=== PATIENT | female | born 1955 | race Caucasian/White ===

== ENCOUNTER 2022-01-17 20:49 | Emergency (ER) | payer MEDICARE ==
[~2022-01-17] VITALS: Ht 165.1 cm; Wt 111.1 kg
[~2022-01-17 20:49] MED LIST: ADULT LOW DOSE81 MG PO; ALEVE220 M1 PO; AMLODIPINE BESY10 MG PO; ATORVASTATIN CA40 MG PO; C-10001000 MG PO; CALTRATE 600 +1 EAC1 PO; DULOXETINE HCL30 MG PO; DULOXETINE HCL40 MG PO; ENALAPRIL MALEA10 MG PO; FARXIGA5 MG PO; FEOSOL325 MG PO; FIASP 100100 UNIT/1 SUB-Q; FUROSEMIDE20 MG PO; FUROSEMIDE40 MG PO; GLUCOPHAGE500 MG PO; HUMALOG100 UNIT/2 SUB-Q; HYDROCHLOROTHIA25 MG PO; INDAPAMIDE1.25 MG PO; LANTUS SOL100 UNIT/1 SQ; LOSARTAN POTASS25 MG PO; METFORMIN HCL500 M1 PO; METOPROLOL TART50 MG PO; NOVOLOG100 UNITS/ SUB-Q; POTASSIUM CHLOR8 MEQ PO; VARENICLINE TART1 MG PO; VASOTEC2.5 MG PO; VENTOLIN HFA18 GM; WARFARIN SODIUM10 MG PO; WARFARIN SODIUM5 MG PO; ZOCOR40 MG PO
[2022-01-17] MEDS ORDERED: DILAUDID2 MG PO (23:49)
[2022-01-17] MEDS ORDERED: COLACE100 MG PO (23:49)
== END 2022-01-18 00:44 | disposition home or self-care (01) ==
LOC: ED 20:49
DX: G89.18 Other acute postprocedural pain (principal); M25.562 Pain in left knee; Z96.652 Presence of left artificial knee joint; I10 Essential (primary) hypertension; E11.9 Type 2 diabetes mellitus without complications; E78.00 Pure hypercholesterolemia, unspecified; Z86.711 Personal history of pulmonary embolism; Z86.718 Personal history of other venous thrombosis and embolism; F17.200 Nicotine dependence, unspecified, uncomplicated; Z88.8 Allergy status to other drugs, medicaments and biological substances; Z79.01 Long term (current) use of anticoagulants; Z79.4 Long term (current) use of insulin; Z79.899 Other long term (current) drug therapy
CPT/HCPCS: 36415; 80053; 85025; 85610; 93971; 96374; 96375; 99284-25; J1170; J2270; J3010

== ENCOUNTER 2022-01-22 12:03 | Emergency (ER) | payer MEDICARE ==
[~2022-01-22] VITALS: Ht 165.1 cm; Wt 117.0 kg
[~2022-01-22 12:03] MED LIST changes: +COLACE100 MG PO; +DILAUDID2 MG PO
--- OUTSIDE RECORDS SUMMARY | 2022-01-22 12:06 | XMS ---
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 Efraín has no Care Guidelines for this patient. [facility] NOTE: Visits indicate total known visits. ED/C VISIT TRACKING (12 MO.) [facility]22 [facility] COMPLAINT: - DIZZINESS, SOB, LOW B/P 01/17/2022 20:49 [facility] [place] TYPE: Emergency COMPLAINT: - POST OP SWELLING INPATIENT VISIT TRACKING (12 MO.) No inpatient visits to display in this time frame [id number]
--- NOTE | 2022-01-25 20:41 | EKG ---
[facility] [address] [place] [address] Signed Normal sinus rhythm Normal ECG When compared with ECG of 15-DEC-2015 14:20, No significant change was found Confirmed by Genna Chicas MD () on 01/25/2022 8:41:13 PM Electronically Signed By: GENNA CHICAS MD 01/25/222040 PATIENT NAME: LENORE TOTH BUCK Electrocardiogram DATE OF : 53 PHYSICIAN: GENNA CHICAS MD REPORT #: [id number] REPORT IS CONFIDENTIAL AND NOT TO BE RELEASED WITHOUT AUTHORIZATION
== END 2022-01-22 19:04 | disposition home or self-care (01) ==
LOC: ED 12:03
DX: D64.9 Anemia, unspecified (principal); R53.1 Weakness; I10 Essential (primary) hypertension; E11.9 Type 2 diabetes mellitus without complications; E78.00 Pure hypercholesterolemia, unspecified; F17.200 Nicotine dependence, unspecified, uncomplicated; Z88.8 Allergy status to other drugs, medicaments and biological substances; Z79.899 Other long term (current) drug therapy; Z79.4 Long term (current) use of insulin; Z79.01 Long term (current) use of anticoagulants
CPT/HCPCS: 36415; 71045; 80053; 83735; 84484; 85025; 85610; 86850; 86900; 86901; 86922; 93005; 93010; 99285-25; P9016

== ENCOUNTER 2022-12-05 20:19 | Emergency (ER) | payer MEDICARE ==
[~2022-12-05] VITALS: Ht 165.1 cm; Wt 97.2 kg
--- OUTSIDE RECORDS SUMMARY | ~2022-12-05 | XMS | Continuity of Care Document ---
Demographics + + + | Address | [address] | | | [place] [address] | + + + | Preferred Language | Unknown | + + + | Marital Status | | + + + | Synagogue Affiliation | Unknown | + + + | Race | White | + + + | Ethnic Group | Not or | + + + Author + + + | Author | [facility] | + + + | Organization | [facility] | + + + | Address | [address] | | | [place] [address] | + + + | Phone | | + + + Care Team Providers + + + + | Care Manager Product Marketing Name | Role | Phone | + + + + Unavailable | Unavailable | + + + + Unavailable | Unavailable | + + + + Unavailable | Unavailable | + + + + Unavailable | Unavailable | + + + + Unavailable | Unavailable | + + + + Allergies and Intolerances + + + + + + | date | description | facility | reaction | severity | + + + + + + | (no date) | Agitation | [facility] | (no reaction) | (no severity) | | | [facility] | | | + + + + + + | (no date) | Enalapril | [facility] | (no reaction) | (no severity) | | | | [facility] | | | + + + + + + | (no date) | enalapril | [facility] | (no reaction) | (no severity) | | | | [facility] | | | + + + + + + | (no date) | Anaphylaxis | [facility] | (no reaction) | (no severity) | | | | [facility] | | | + + + + + + | (no date) | Naproxen | [facility] | (no reaction) | (no severity) | | | | [facility] | | | + + + + + + | (no date) | Enalapril | [facility] | (no reaction) | (no severity) | | | | [facility] | | | + + + + + + | (no date) | Naproxen | [facility] | (no reaction) | (no severity) | | | | [facility] | | | + + + + + + | (no date) | naproxen | [facility] | (no reaction) | (no severity) | | | | [facility] | | | + + + + + + | (no date) | meperidine HCl | [facility] | (no reaction) | (no severity) | | | | | | | + + + + + + | (no date) | naproxen | [facility] | (no reaction) | (no severity) | + + + + + + | (no date) | enalapril | [facility] | (no reaction) | (no severity) | + + + + + + Encounters No information. Functional Status No information. Immunizations + + + + | date | description | facility | + + + + | 2012-11-14 00:00 | Pneumococcal | [facility] | | | Polysaccharide PPV23 | | + + + + | 2012-11-14 00:00 | Pneumococcal | [facility] | | | Polysaccharide PPV23 | | + + + + | 2022-01-18 00:00 | No vaccine administered | [facility] | + + + + | 2022-01-22 00:00 | No vaccine administered | [facility] | + + + + | 2022-02-17 00:00 | No vaccine administered | [facility] | + + + + Medications + + + + | date | description | facility | + + + + | 2022-02-17 00:00 | OXYCODONE HCL | [facility] | + + + + | 2022-02-17 00:00 | oxycodone hydrochloride 5 | [facility] | | | MG Oral Tablet | | + + + + | 2022-01-18 00:00 | NAPROXEN SODIUM | [facility] | + + + + | 2022-01-22 00:00 | NAPROXEN SODIUM | [facility] | + + + + | 2022-02-17 00:00 | NAPROXEN SODIUM | [facility] | + + + + | 2022-01-18 00:00 | naproxen sodium 220 MG | [facility] | | | Oral Capsule | | + + + + | 2022-01-22 00:00 | naproxen sodium 220 MG | [facility] | | | Oral Capsule | | + + + + | 2022-02-17 00:00 | naproxen sodium 220 MG | [facility] | | | Oral Capsule | | + + + + | 2022-01-17 00:00 | DOCUSATE SODIUM | [facility] | + + + + | 2022-01-17 00:00 | docusate sodium 100 MG | [facility] | | | Oral Capsule [Colace] | | + + + + | 2022-01-18 00:00 | CALCIUM CARBONATE/VITAMIN | [facility] | | | D3 | | + + + + | 2022-01-22 00:00 | CALCIUM CARBONATE/VITAMIN | [facility] | | | D3 | | + + + + | 2022-02-17 00:00 | CALCIUM CARBONATE/VITAMIN | [facility] | | | D3 | | + + + + | 2022-01-18 00:00 | calcium carbonate 1500 MG | [facility] | | | / cholecalciferol 800 UNT | | | | Oral Tab | | + + + + | 2022-01-22 00:00 | calcium carbonate 1500 MG | [facility] | | | / cholecalciferol 800 UNT | | | | Oral Tab | | + + + + | 2022-02-17 00:00 | calcium carbonate 1500 MG | [facility] | | | / cholecalciferol 800 UNT | | | | Oral Tab | | + + + + | 2022-01-18 00:00 | SIMVASTATIN | [facility] | + + + + | 2022-01-22 00:00 | SIMVASTATIN | [facility] | + + + + | 2022-02-17 00:00 | SIMVASTATIN | [facility] | + + + + | 2022-01-18 00:00 | simvastatin 40 MG Oral | [facility] | | | Tablet [Zocor] | | + + + + | 2022-01-22 00:00 | simvastatin 40 MG Oral | [facility] | | | Tablet [Zocor] | | + + + + | 2022-02-17 00:00 | simvastatin 40 MG Oral | [facility] | | | Tablet [Zocor] | | + + + + | 2022-02-17 00:00 | DOXYCYCLINE HYCLATE | [facility] | + + + + | 2022-02-17 00:00 | doxycycline hyclate 50 MG | [facility] | | | Oral Capsule | | + + + + | 2022-02-17 00:00 | DOXYCYCLINE MONOHYDRATE | [facility] | + + + + | 2022-02-17 00:00 | doxycycline monohydrate 50 | [facility] | | | MG Oral Tablet | | + + + + | 2022-01-18 00:00 | INDAPAMIDE | [facility] | + + + + | 2022-01-22 00:00 | INDAPAMIDE | [facility] | + + + + | 2022-02-17 00:00 | INDAPAMIDE | [facility] | + + + + | 2022-01-18 00:00 | indapamide 1.25 MG Oral | [facility] | | | Tablet | | + + + + | 2022-01-22 00:00 | indapamide 1.25 MG Oral | [facility] | | | Tablet | | + + + + | 2022-02-17 00:00 | indapamide 1.25 MG Oral | [facility] | | | Tablet | | + + + + | 2022-02-17 00:00 | ACETAMINOPHEN | [facility] | + + + + | 2022-02-17 00:00 | acetaminophen 500 MG Oral | [facility] | | | Tablet | | + + + + | 2022-01-18 00:00 | 3 ML insulin aspart, human | [facility] | | | 100 UNT/ML Pen Injector | | | | [Fiasp] | | + + + + | 2022-01-22 00:00 | 3 ML insulin aspart, human | [facility] | | | 100 UNT/ML Pen Injector | | | | [Fiasp] | | + + + + | 2022-02-17 00:00 | 3 ML insulin aspart, human | [facility] | | | 100 UNT/ML Pen Injector | | | | [Fiasp] | | + + + + | 2022-01-18 00:00 | Insulin Aspart | [facility] | | | (Niacinamide) | | + + + + | 2022-01-22 00:00 | Insulin Aspart | [facility] | | | (Niacinamide) | | + + + + | 2022-02-17 00:00 | Insulin Aspart | [facility] | | | (Niacinamide) | | + + + + | 2022-01-18 00:00 | ASCORBIC ACID | [facility] | + + + + | 2022-01-22 00:00 | ASCORBIC ACID | [facility] | + + + + | 2022-02-17 00:00 | ASCORBIC ACID | [facility] | + + + + | 2022-01-18 00:00 | ascorbic acid 1000 MG Oral | [facility] | | | Tablet | | + + + + | 2022-01-22 00:00 | ascorbic acid 1000 MG Oral | [facility] | | | Tablet | | + + + + | 2022-02-17 00:00 | ascorbic acid 1000 MG Oral | [facility] | | | Tablet | | + + + + | 2022-01-18 00:00 | FUROSEMIDE | [facility] | + + + + | 2022-01-22 00:00 | FUROSEMIDE | [facility] | + + + + | 2022-02-17 00:00 | FUROSEMIDE | [facility] | + + + + | 2022-01-18 00:00 | furosemide 20 MG Oral | [facility] | | | Tablet | | + + + + | 2022-01-22 00:00 | furosemide 20 MG Oral | [facility] | | | Tablet | | + + + + | 2022-02-17 00:00 | furosemide 20 MG Oral | [facility] | | | Tablet | | + + + + | 2022-01-18 00:00 | HYDROCHLOROTHIAZIDE | [facility] | + + + + | 2022-01-22 00:00 | HYDROCHLOROTHIAZIDE | [facility] | + + + + | 2022-02-17 00:00 | HYDROCHLOROTHIAZIDE | [facility] | + + + + | 2022-01-18 00:00 | hydrochlorothiazide 25 MG | [facility] | | | Oral Tablet | | + + + + | 2022-01-22 00:00 | hydrochlorothiazide 25 MG | [facility] | | | Oral Tablet | | + + + + | 2022-02-17 00:00 | hydrochlorothiazide 25 MG | [facility] | | | Oral Tablet | | + + + + | 2022-01-18 00:00 | POTASSIUM CHLORIDE | [facility] | + + + + | 2022-01-22 00:00 | POTASSIUM CHLORIDE | [facility] | + + + + | 2022-02-17 00:00 | POTASSIUM CHLORIDE | [facility] | + + + + | 2022-01-18 00:00 | potassium chloride 8 MEQ | [facility] | | | Extended Release Oral | | | | Capsule | | + + + + | 2022-01-22 00:00 | potassium chloride 8 MEQ | [facility] | | | Extended Release Oral | | | | Capsule | | + + + + | 2022-02-17 00:00 | potassium chloride 8 MEQ | [facility] | | | Extended Release Oral | | | | Capsule | | + + + + | 2022-01-18 00:00 | DULOXETINE HCL | [facility] | + + + + | 2022-01-22 00:00 | DULOXETINE HCL | [facility] | + + + + | 2022-02-17 00:00 | DULOXETINE HCL | [facility] | + + + + | 2022-01-18 00:00 | duloxetine 30 MG Delayed | [facility] | | | Release Oral Capsule | | + + + + | 2022-01-22 00:00 | duloxetine 30 MG Delayed | [facility] | | | Release Oral Capsule | | + + + + | 2022-02-17 00:00 | duloxetine 30 MG Delayed | [facility] | | | Release Oral Capsule | | + + + + | 2022-01-18 00:00 | ATORVASTATIN CALCIUM | [facility] | + + + + | 2022-01-22 00:00 | ATORVASTATIN CALCIUM | [facility] | + + + + | 2022-02-17 00:00 | ATORVASTATIN CALCIUM | [facility] | + + + + | 2022-01-18 00:00 | atorvastatin 40 MG Oral | [facility] | | | Tablet | | + + + + | 2022-01-22 00:00 | atorvastatin 40 MG Oral | [facility] | | | Tablet | | + + + + | 2022-02-17 00:00 | atorvastatin 40 MG Oral | [facility] | | | Tablet | | + + + + | 2022-01-18 00:00 | FERROUS SULFATE | [facility] | + + + + | 2022-01-22 00:00 | FERROUS SULFATE | [facility] | + + + + | 2022-02-17 00:00 | FERROUS SULFATE | [facility] | + + + + | 2022-01-18 00:00 | ferrous sulfate 325 MG | [facility] | | | Oral Tablet [Feosol] | | + + + + | 2022-01-22 00:00 | ferrous sulfate 325 MG | [facility] | | | Oral Tablet [Feosol] | | + + + + | 2022-02-17 00:00 | ferrous sulfate 325 MG | [facility] | | | Oral Tablet [Feosol] | | + + + + | 2022-01-18 00:00 | Varenicline Tartrate | [facility] | + + + + | 2022-01-22 00:00 | Varenicline Tartrate | [facility] | + + + + | 2022-02-17 00:00 | Varenicline Tartrate | [facility] | + + + + | 2022-01-18 00:00 | varenicline 1 MG Oral | [facility] | | | Tablet | | + + + + | 2022-01-22 00:00 | varenicline 1 MG Oral | [facility] | | | Tablet | | + + + + | 2022-02-17 00:00 | varenicline 1 MG Oral | [facility] | | | Tablet | | + + + + | 2022-02-17 00:00 | TRAMADOL HCL | [facility] | + + + + | 2022-02-17 00:00 | tramadol hydrochloride 50 | [facility] | | | MG Oral Tablet | | + + + + | 2022-01-18 00:00 | 3 ML insulin glargine 100 | [facility] | | | UNT/ML Pen Injector | | | | [Lantus] | | + + + + | 2022-01-22 00:00 | 3 ML insulin glargine 100 | [facility] | | | UNT/ML Pen Injector | | | | [Lantus] | | + + + + | 2022-02-17 00:00 | 3 ML insulin glargine 100 | [facility] | | | UNT/ML Pen Injector | | | | [Lantus] | | + + + + | 2022-01-18 00:00 | INSULIN | [facility] | | | GLARZORANE,HUM.REC.ANLOG | | + + + + | 2022-01-22 00:00 | INSULIN | [facility] | | | GLARGINE,HUM.REC.ANLOG | | + + + + | 2022-02-17 00:00 | INSULIN | [facility] | | | GLARGINE,HUM.REC.ANLOG | | + + + + | 2022-02-17 00:00 | 0.8 ML enoxaparin sodium | [facility] | | | 150 MG/ML Prefilled Syringe | | | | | | + + + + | 2022-02-17 00:00 | ENOXAPARIN SODIUM | [facility] | + + + + | 2022-01-18 00:00 | WARFARIN SODIUM | [facility] | + + + + | 2022-01-22 00:00 | WARFARIN SODIUM | [facility] | + + + + | 2022-02-17 00:00 | WARFARIN SODIUM | [facility] | + + + + | 2022-01-18 00:00 | warfarin sodium 10 MG Oral | [facility] | | | Tablet | | + + + + | 2022-01-22 00:00 | warfarin sodium 10 MG Oral | [facility] | | | Tablet | | + + + + | 2022-02-17 00:00 | warfarin sodium 10 MG Oral | [facility] | | | Tablet | | + + + + | 2022-01-18 00:00 | WARFARIN SODIUM | [facility] | + + + + | 2022-01-22 00:00 | WARFARIN SODIUM | [facility] | + + + + | 2022-02-17 00:00 | WARFARIN SODIUM | [facility] | + + + + | 2022-01-18 00:00 | warfarin sodium 5 MG Oral | [facility] | | | Tablet | | + + + + | 2022-01-22 00:00 | warfarin sodium 5 MG Oral | [facility] | | | Tablet | | + + + + | 2022-02-17 00:00 | warfarin sodium 5 MG Oral | [facility] | | | Tablet | | + + + + | 2022-01-18 00:00 | ENALAPRIL MALEATE | [facility] | + + + + | 2022-01-22 00:00 | ENALAPRIL MALEATE | [facility] | + + + + | 2022-02-17 00:00 | ENALAPRIL MALEATE | [facility] | + + + + | 2022-01-18 00:00 | enalapril maleate 2.5 MG | [facility] | | | Oral Tablet [Vasotec] | | + + + + | 2022-01-22 00:00 | enalapril maleate 2.5 MG | [facility] | | | Oral Tablet [Vasotec] | | + + + + | 2022-02-17 00:00 | enalapril maleate 2.5 MG | [facility] | | | Oral Tablet [Vasotec] | | + + + + | 2022-01-18 00:00 | ENALAPRIL MALEATE | [facility] | + + + + | 2022-01-22 00:00 | ENALAPRIL MALEATE | [facility] | + + + + | 2022-02-17 00:00 | ENALAPRIL MALEATE | [facility] | + + + + | 2022-01-18 00:00 | enalapril maleate 10 MG | [facility] | | | Oral Tablet | | + + + + | 2022-01-22 00:00 | enalapril maleate 10 MG | [facility] | | | Oral Tablet | | + + + + | 2022-02-17 00:00 | enalapril maleate 10 MG | [facility] | | | Oral Tablet | | + + + + | 2022-01-18 00:00 | ALBUTEROL SULFATE | [facility] | + + + + | 2022-01-18 00:00 | [id number] 200 ACTUAT | [facility] | | | albuterol 0.09 MG/ACTUAT | | | | Metered Dose I | | + + + + | 2022-01-18 00:00 | METOPROLOL TARTRATE | [facility] | + + + + | 2022-01-22 00:00 | METOPROLOL TARTRATE | [facility] | + + + + | 2022-02-17 00:00 | METOPROLOL TARTRATE | [facility] | + + + + | 2022-01-18 00:00 | metoprolol tartrate 50 MG | [facility] | | | Oral Tablet | | + + + + | 2022-01-22 00:00 | metoprolol tartrate 50 MG | [facility] | | | Oral Tablet | | + + + + | 2022-02-17 00:00 | metoprolol tartrate 50 MG | [facility] | | | Oral Tablet | | + + + + | 2022-01-17 00:00 | HYDROMORPHONE HCL | [facility] | + + + + | 2022-01-17 00:00 | hydromorphone | [facility] | | | hydrochloride 2 MG Oral | | | | Tablet [Dilaudid] | | + + + + | 2022-01-18 00:00 | LOSARTAN POTASSIUM | [facility] | + + + + | 2022-01-22 00:00 | LOSARTAN POTASSIUM | [facility] | + + + + | 2022-02-17 00:00 | LOSARTAN POTASSIUM | [facility] | + + + + | 2022-01-18 00:00 | losartan potassium 25 MG | [facility] | | | Oral Tablet | | + + + + | 2022-01-22 00:00 | losartan potassium 25 MG | [facility] | | | Oral Tablet | | + + + + | 2022-02-17 00:00 | losartan potassium 25 MG | [facility] | | | Oral Tablet | | + + + + Problems + + + + | date | description | facility | + + + + | 2015-12-15 00:00 | Confusion | [facility] | + + + + | 2015-12-15 00:00 | Confusion | [facility] | + + + + | 2019-11-28 16:25:07 | Rheumatic mitral stenosis | [facility] | | | [facility] | + + + + | 2019-11-28 16:25:07 | Nonrheumatic aortic | [facility] | | | (valve) stenosis | [facility] | + + + + | 2022-01-17 00:00 | Postoperative pain of left | [facility] | | | knee | | + + + + | 2022-01-17 00:00 | Postoperative pain of left | [facility] | | | knee | | + + + + | 2022-01-22 00:00 | Anemia | [facility] | + + + + | 2022-01-22 00:00 | Anemia | [facility] | + + + + | 2022-01-22 00:00 | Weakness | [facility] | + + + + | 2022-01-22 00:00 | Weakness | [facility] | + + + + | 2022-02-13 00:00 | Postoperative infection of | [facility] | | | knee | | + + + + | 2022-05-26 09:34 | ENCOUNTER FOR THERAPEUTIC | [facility] | | | DRUG LEVEL MONITORING | | + + + + | 2022-05-26 09:34 | CAGE OPERATOR (CURRENT) USE OF | [facility] | | | ANTICOAGULANTS | | + + + + | 2022-05-26 09:34 | PRESENCE OF PROSTHETIC | [facility] | | | HEART VALVE | | + + + + | 2022-06-02 09:25 | ENCOUNTER FOR THERAPEUTIC | [facility] | | | DRUG LEVEL MONITORING | | + + + + | 2022-06-02 09:25 | SKILLED NURSING (CURRENT) USE OF | [facility] | | | ANTICOAGULANTS | | + + + + | 2022-06-02 09:25 | PRESENCE OF PROSTHETIC | [facility] | | | HEART VALVE | | + + + + | 2022-06-09 08:39 | ACUTE EMBOLISM AND THOMBOS | [facility] | | | UNSP DEEP VN UNSP LOWER | | + + + + | 2022-06-09 08:39 | ENCOUNTER FOR THERAPEUTIC | [facility] | | | DRUG LEVEL MONITORING | | + + + + | 2022-06-09 08:39 | SKILLED NURSING (CURRENT) USE OF | [facility] | | | ANTICOAGULANTS | | + + + + | 2022-06-09 08:39 | PRESENCE OF PROSTHETIC | [facility] | | | HEART VALVE | | + + + + | 2022-11-03 10:15 | ACUTE EMBOLISM AND THOMBOS | [facility] | | | UNSP DEEP VN UNSP LOWER | | | | EXTREMITY | | + + + + | 2022-11-03 10:15 | SKILLED NURSING (CURRENT) USE OF | [facility] | | | ANTICOAGULANTS | | + + + + | 2022-11-03 10:15 | PRESENCE OF PROSTHETIC | [facility] | | | HEART VALVE | | + + + + | 2022-11-10 09:23 | ENCOUNTER FOR THERAPEUTIC | [facility] | | | DRUG LEVEL MONITORING | | + + + + | 2022-11-10 09:23 | CAGE OPERATOR (CURRENT) USE OF | [facility] | | | ANTICOAGULANTS | | + + + + Procedures No information. Results/Labs +--------+--------+ +---------+--------+---------+ | test | date | facility | value | unit | notes | +--------+--------+ +---------+--------+---------+ + + | Result panel 1 | + + + + + +--------+ + + | Blood | 2022-01-17 | [facility] | 15.4 | (missing) | (missing) | | leukocytes | 22:14 | [facility] | | | | | automated | | [facility] | | | | | count | | | | | | | (number/volu | | | | | | | me) | | | | | | + + + +--------+ + + + + | Result panel 2 | + + + + + +--------+ + + | Automated | 2022-01-17 | [facility] | 76.8 | (missing) | (missing) | | blood | 22:14 | [facility] | | | | | neutrophil | | Hospital | | | | | count as | | | | | | | percentage | | | | | | | of total | | | | | | | leukocytes | | | | | | + + + +--------+ + + + + | Result panel 3 | + + + + + +--------+ + + | Automated | 2022-01-17 | [facility] | 10.9 | (missing) | (missing) | | blood | 22:14 | [facility] | | | | | lymphocyte | | Hospital | | | | | count as | | | | | | | percentage | | | | | | | ot total | | | | | | | leukocytes | | | | | | + + + +--------+ + + + + | Result panel 4 | + + + + + +-------+ + + | Automated | 2022-01-17 | [facility] | 9.4 | (missing) | (missing) | | blood | 22:14 | [facility] | | | | | monocyte | | Hospital | | | | | count as | | | | | | | percentage | | | | | | | of total | | | | | | | leukocytes | | | | | | + + + +-------+ + + + + | Result panel 5 | + + + + + +--------+ + + | | 2022-01-17 | [facility] | 76.8 | (missing) | (missing) | | (unavailable | 22:14 | [facility] | | | | | ) | | [facility] | | | | + + + +--------+ + + + + | Result panel 6 | + + + + + +--------+ + + | | 2022-01-17 | [facility] | 10.9 | (missing) | (missing) | | (unavailable | 22:14 | [facility] | | | | | ) | | [facility] | | | | + + + +--------+ + + + + | Result panel 7 | + + + + + +-------+ + + | | 2022-01-17 | [facility] | 9.4 | (missing) | (missing) | | (unavailable | 22:14 | [facility] | | | [facility] ) | | [facility] | | | | + + + +-------+ + + + + | Result panel 8 | + + + + + +-------+ + + | | 2022-01-17 | [facility] | 1.6 | (missing) | (missing) | | (unavailable | 22:14 | [facility] | | | | | ) | | [facility] | | | | + + + +-------+ + + + + | Result panel 9 | + + + + + +-------+ + + | | 2022-01-17 | [facility] | 1.3 | (missing) | (missing) | | (unavailable | 22:14 | [facility] | | | | [facility] ) | | [facility] | | | | + + + +-------+ + + + + | Result panel 10 | + + + + + +-------+ + + | Automated | 2022-01-17 | [facility] | 1.6 | (missing) | (missing) | | blood | 22:14 | [facility] | | | | | eosinophil | | Hospital | | | | | count as | | | | | | | percentage | | | | | | | of total | | | | | | | leukocytes | | | | | | + + + +-------+ + + + + | Result panel 11 | + + + + + +-------+ + + | Automated | 2022-01-17 | [facility] | 1.3 | (missing) | (missing) | | blood | 22:14 | [facility] | | | | | basophil | | Hospital | | | | | count as | | | | | | | percentage | | | | | | | of total | | | | | | | leukocytes | | | | | | + + + +-------+ + + + + | Result panel 12 | + + + + + +--------+ + + | Prothrombin | 2022-01-17 | [facility] | 21.2 | (missing) | (missing) | | time (PT) | 22:14 | [facility] | | | | | in platelet | | Hospital | | | | | poor plasma | | | | | | | by | | | | | | | coagulation | | | | | | | assay | | | | | | + + + +--------+ + + + + | Result panel 13 | + + + + + +--------+ + + | INR in | 2022-01-17 | [facility] | 1.91 | (missing) | (missing) | | Platelet | 22:14 | [facility] | | | | | poor plasma | | Hospital | | | | | by | | | | | | | Coagulation | | | | | | | assay | | | | | | + + + +--------+ + + + + | Result panel 14 | + + + + + +------+ + + | Serum or | 2022-01-17 | [facility] | 80 | (missing) | (missing) | | plasma | 22:14 | [facility] | | | | | glucose | | Hospital | | | | | measurement | | | | | | | (mass/volume | | | | | | | ) | | | | | | + + + +------+ + + + + | Result panel 15 | + + + + + +------+ + + | Serum or | 2022-01-17 | [facility] | 44 | (missing) | (missing) | | plasma urea | 22:14 | [facility] | | | | | nitrogen | | Hospital | | | | | measurement | | | | | | | (mass/volume | | | | | | | ) | | | | | | + + + +------+ + + + + | Result panel 16 | + + + + + +--------+ + + | Serum or | 2022-01-17 | [facility] | 2.09 | (missing) | (missing) | | plasma | 22:14 | [facility] | | | | | creatinine | | Hospital | | | | | measurement | | | | | | | (mass/volume | | | | | | | ) | | | | | | + + + +--------+ + + + + | Result panel 17 | + + + + + +--------+ + + | Blood | 2022-01-17 | [facility] | 2.91 | (missing) | (missing) | | erythrocytes | 22:14 | [facility] | | | | | automated | | Hospital | | | | | count | | | | | | | (number/volu | | | | | | | me) | | | | | | + + + +--------+ + + + + | Result panel 18 | + + + + + +------+ + + | Glomerular | 2022-01-17 | [facility] | 25 | (missing) | (missing) | | filtration | 22:14 | [facility] | | | | | rate/1.73 sq | | Hospital | | | | | M.predicted | | | | | | | [Volume | | | | | | | Rate/Area] | | | | | | | inSerum, | | | | | | | Plasma or | | | | | | | Blood by | | | | | | | Creatinine-b | | | | | | | ased formula | | | | | | | (CKD-EPI | | | | | | | 2020) | | | | | | + + + +------+ + + + + | Result panel 19 | + + + + + +---------+ + + | Serum or | 2022-01-17 | [facility] | 21.05 | (missing) | (missing) | | plasma urea | 22:14 | [facility] | | | | | nitrogen/cre | | [facility] | | | | | atinine mass | | | | | | | ratio | | | | | | + + + +---------+ + + + + | Result panel 20 | + + + + + +-------+ + + | Serum or | 2022-01-17 | [facility] | 142 | (missing) | (missing) | | plasma | 22:14 | [facility] | | | | | sodium | | [facility] | | | | | measurement | | | | | | | (moles/volum | | | | | | | e) | | | | | | + + + +-------+ + + + + | Result panel 21 | + + + + + +-------+ + + | Serum or | 2022-01-17 | [facility] | 4.2 | (missing) | (missing) | | plasma | 22:14 | [facility] | | | | | potassium | | [facility] | | | | | measurement | | | | | | | (moles/volum | | | | | | | e) | | | | | | + + + +-------+ + + + + | Result panel 22 | + + + + + +-------+ + + | Serum or | 2022-01-17 | [facility] | 106 | (missing) | (missing) | | plasma | 22:14 | [facility] | | | | | chloride | | [facility] | | | | | measurement | | | | | | | (moles/volum | | | | | | | e) | | | | | | + + + +-------+ + + + + | Result panel 23 | + + + + + +------+ + + | Serum or | 2022-01-17 | [facility] | 25 | (missing) | (missing) | | plasma | 22:14 | [facility] | | | | | carbon | | [facility] | | | | | dioxide, | | | | | | | total | | | | | | | measurement | | | | | | | (moles/volum | | | | | | | e) | | | | | | + + + +------+ + + + + | Result panel 24 | + + + + + +--------+ + + | Serum or | 2022-01-17 | [facility] | 15.2 | (missing) | (missing) | | plasma anion | 22:14 | [facility] | | | | | gap 4 | | [facility] | | | | + + + +--------+ + + + + | Result panel 25 | + + + + + +-------+ + + | Serum or | 2022-01-17 | [facility] | 8.1 | (missing) | (missing) | | plasma | 22:14 | [facility] | | | | | calcium | | [facility] | | | | | measurement | | | | | | | (mass/volume | | | | | | | ) | | | | | | + + + +-------+ + + + + | Result panel 26 | + + + + + +-------+ + + | Serum or | 2022-01-17 | [facility] | 7.1 | (missing) | (missing) | | plasma | 22:14 | [facility] | | | | | protein | | [facility] | | | | | measurement | | | | | | | (mass/volume | | | | | | | ) | | | | | | + + + +-------+ + + + + | Result panel 27 | + + + + + +-------+ + + | Serum or | 2022-01-17 | [facility] | 2.8 | (missing) | (missing) | | plasma | 22:14 | [facility] | | | | | albumin | | [facility] | | | | | measurement | | | | | | | (mass/volume | | | | | | | ) | | | | | | + + + +-------+ + + + + | Result panel 28 | + + + + + +-------+ + + | Blood | 2022-01-17 | [facility] | 8.9 | (missing) | (missing) | | hemoglobin | 22:14 | [facility] | | | | | measurement | | [facility] | | | | | (mass/volume | | | | | | | ) | | | | | | + + + +-------+ + + + + | Result panel 29 | + + + + + +-------+ + + | Serum | 2022-01-17 | [facility] | 4.3 | (missing) | (missing) | | globulin | 22:14 | [facility] | | | | | measurement | | [facility] | | | | | (mass/volume | | | | | | | ) | | | | | | + + + +-------+ + + + + | Result panel 30 | + + + + + +--------+ + + | Serum or | 2022-01-17 | [facility] | 0.65 | (missing) | (missing) | | plasma | 22:14 | [facility] | | | | | albumin/glob | | [facility] | | | | | ulin mass | | | | | | | ratio | | | | | | + + + +--------+ + + + + | Result panel 31 | + + + + + +-------+ + + | Serum or | 2022-01-17 | [facility] | 0.4 | (missing) | (missing) | | plasma total | 22:14 | [facility] | | | | | bilirubin | | [facility] | | | | | measurement | | | | | | | (mass/volume | | | | | | | ) | | | | | | + + + +-------+ + + + + | Result panel 32 | + + + + + +------+ + + | Serum or | 2022-01-17 | [facility] | 36 | (missing) | (missing) | | plasma | 22:14 | [facility] | | | | | aspartate | | [facility] | | | | | aminotransfe | | | | | | | rase | | | | | | | measurement | | | | | | | (enzymatic | | | | | | | activity/vol | | | | | | | ume) | | | | | | + + + +------+ + + + + | Result panel 33 | + + + + + +------+ + + | Serum or | 2022-01-17 | [facility] | 37 | (missing) | (missing) | | plasma | 22:14 | [facility] | | | | | alanine | | Hospital | | | | | aminotransfe | | | | | | | rase | | | | | | | measurement | | | | | | | (enzymatic | | | | | | | activity/vol | | | | | | | ume) | | | | | | + + + +------+ + + + + | Result panel 34 | + + + + + +------+ + + | Serum or | 2022-01-17 | [facility] | 91 | (missing) | (missing) | | plasma | 22:14 | [facility] | | | | | alkaline | | [facility] | | | | | phosphatase | | | | | | | measurement | | | | | | | (enzymatic | | | | | | | activity/vol | | | | | | | ume) | | | | | | + + + +------+ + + + + | Result panel 35 | + + + + + +--------+ + + | | 2022-01-17 | [facility] | 15.4 | (missing) | (missing) | | (unavailable | 22:14 | [facility] | | | | | ) | | [facility] | | | | + + + +--------+ + + + + | Result panel 36 | + + + + + +--------+ + + | | 2022-01-17 | [facility] | 2.91 | (missing) | (missing) | | (unavailable | 22:14 | [facility] | | | | | ) | | [facility] | | | | + + + +--------+ + + + + | Result panel 37 | + + + + + +-------+ + + | | 2022-01-17 | [facility] | 8.9 | (missing) | (missing) | | (unavailable | 22:14 | [facility] | | | | | ) | | [facility] | | | | + + + +-------+ + + + + | Result panel 38 | + + + + + +--------+ + + | | 2022-01-17 | [facility] | 27.2 | (missing) | (missing) | | (unavailable | 22:14 | [facility] | | | | | ) | | [facility] | | | | + + + +--------+ + + + + | Result panel 39 | + + + + + +--------+ + + | Automated | 2022-01-17 | [facility] | 27.2 | (missing) | (missing) | | blood | 22:14 | [facility] | | | | | hematocrit | | [facility] | | | | + + + +--------+ + + + + | Result panel 40 | + + + + + +--------+ + + | | 2022-01-17 | [facility] | 93.4 | (missing) | (missing) | | (unavailable | 22:14 | [facility] | | | | | ) | | [facility] | | | | + + + +--------+ + + + + | Result panel 41 | + + + + + +--------+ + + | | 2022-01-17 | [facility] | 30.4 | (missing) | (missing) | | (unavailable | 22:14 | [facility] | | | | | ) | | [facility] | | | | + + + +--------+ + + + + | Result panel 42 | + + + + + +--------+ + + | | 2022-01-17 | [facility] | 32.6 | (missing) | (missing) | | (unavailable | 22:14 | [facility] | | | | | ) | | [facility] | | | | + + + +--------+ + + + + | Result panel 43 | + + + + + +--------+ + + | | 2022-01-17 | [facility] | 15.2 | (missing) | (missing) | | (unavailable | 22:14 | [facility] | | | | | ) | | [facility] | | | | + + + +--------+ + + + + | Result panel 44 | + + + + + +-------+ + + | | 2022-01-17 | [facility] | 365 | (missing) | (missing) | | (unavailable | 22:14 | [facility] | | | | | ) | | [facility] | | | | + + + +-------+ + + + + | Result panel 45 | + + + + + +--------+ + + | | 2022-01-17 | [facility] | 76.8 | (missing) | (missing) | | (unavailable | 22:14 | [facility] | | | | | ) | | [facility] | | | | + + + +--------+ + + + + | Result panel 46 | + + + + + +--------+ + + | | 2022-01-17 | [facility] | 10.9 | (missing) | (missing) | | (unavailable | 22:14 | [facility] | | | | ) | | [facility] | | | | + + + +--------+ + + + + | Result panel 47 | + + + + + +-------+ + + | | 2022-01-17 | [facility] | 9.4 | (missing) | (missing) | | (unavailable | 22:14 | [facility] | | | | ) | | [facility] | | | | + + + +-------+ + + + + | Result panel 48 | + + + + + +-------+ + + | | 2022-01-17 | [facility] | 1.6 | (missing) | (missing) | | (unavailable | 22:14 | [facility] | | | | | ) | | [facility] | | | | + + + +-------+ + + + + | Result panel 49 | + + + + + +-------+ + + | | 2022-01-17 | [facility] | 1.3 | (missing) | (missing) | | (unavailable | 22:14 | [facility] | | | | | ) | | [facility] | | | | + + + +-------+ + + + + | Result panel 50 | + + + + + +--------+ + + | Automated | 2022-01-17 | [facility] | 93.4 | (missing) | (missing) | | erythrocyte | 22:14 | [facility] | | | | | mean | | Hospital | | | | | corpuscular | | | | | | | volume | | | | | | + + + +--------+ + + + + | Result panel 51 | + + + + + +--------+ + + | | 2022-01-17 | [facility] | 21.2 | (missing) | (missing) | | (unavailable | 22:14 | [facility] | | | | | ) | | [facility] | | | | + + + +--------+ + + + + | Result panel 52 | + + + + + +--------+ + + | | 2022-01-17 | [facility] | 1.91 | (missing) | (missing) | | (unavailable | 22:14 | [facility] | | | | | ) | | [facility] | | | | + + + +--------+ + + + + | Result panel 53 | + + + + + +------+---------+ + | | 2022-01-17 | [facility] | 80 | mg/dL | (missing) | | (unavailable | 22:14 | [facility] | | | | | ) | | [facility] | | | | + + + +------+---------+ + + + | Result panel 54 | + + + + + +------+---------+ + | | 2022-01-17 | [facility] | 44 | mg/dL | (missing) | | (unavailable | 22:14 | [facility] | | [facility] | ) | | [facility] | | | | + + + +------+---------+ + + + | Result panel 55 | + + + + + +--------+---------+ + | | 2022-01-17 | [facility] | 2.09 | mg/dL | (missing) | | (unavailable | 22:14 | [facility] | | [facility] | ) | | [facility] | | | | + + + +--------+---------+ + + + | Result panel 56 | + + + + + +------+ + + | | 2022-01-17 | [facility] | 25 | (missing) | (missing) | | (unavailable | 22:14 | [facility] | | | | ) | | [facility] | | | | + + + +------+ + + + + | Result panel 57 | + + + + + +---------+ + + | | 2022-01-17 | [facility] | 21.05 | (missing) | (missing) | | (unavailable | 22:14 | [facility] | | | | | ) | | [facility] | | | | + + + +---------+ + + + + | Result panel 58 | + + + + + +-------+ + + | | 2022-01-17 | [facility] | 142 | (missing) | (missing) | | (unavailable | 22:14 | [facility] | | [facility] | ) | | [facility] | | | | + + + +-------+ + + + + | Result panel 59 | + + + + + +-------+ + + | | 2022-01-17 | [facility] | 4.2 | (missing) | (missing) | | (unavailable | 22:14 | [facility] | | | | ) | | [facility] | | | | + + + +-------+ + + + + | Result panel 60 | + + + + + +-------+ + + | | 2022-01-17 | [facility] | 106 | (missing) | (missing) | | (unavailable | 22:14 | [facility] | | | [facility] ) | | [facility] | | | | + + + +-------+ + + + + | Result panel 61 | + + + + + +--------+ + + | Automated | 2022-01-17 | [facility] | 30.4 | (missing) | (missing) | | erythrocyte | 22:14 | [facility] | | | | | mean | | Hospital | | | | | corpuscular | | | | | | | hemoglobin | | | | | | | (mass per | | | | | | | erythrocyte) | | | | | | | | | | | | | + + + +--------+ + + + + | Result panel 62 | + + + + + +------+ + + | | 2022-01-17 | [facility] | 25 | (missing) | (missing) | | (unavailable | 22:14 | [facility] | | | | ) | | [facility] | | | | + + + +------+ + + + + | Result panel 63 | + + + + + +--------+ + + | | 2022-01-17 | [facility] | 15.2 | (missing) | (missing) | | (unavailable | 22:14 | [facility] | | [facility] | ) | | [facility] | | | | + + + +--------+ + + + + | Result panel 64 | + + + + + +-------+---------+ + | | 2022-01-17 | [facility] | 8.1 | mg/dL | (missing) | | (unavailable | 22:14 | [facility] | | | | | ) | | [facility] | | | | + + + +-------+---------+ + + + | Result panel 65 | + + + + + +-------+ + + | | 2022-01-17 | [facility] | 7.1 | (missing) | (missing) | | (unavailable | 22:14 | [facility] | | | | | ) | | [facility] | | | | + + + +-------+ + + + + | Result panel 66 | + + + + + +-------+ + + | | 2022-01-17 | [facility] | 2.8 | (missing) | (missing) | | (unavailable | 22:14 | [facility] | | | | | ) | | [facility] | | | | + + + +-------+ + + + + | Result panel 67 | + + + + + +-------+ + + | | 2022-01-17 | [facility] | 4.3 | (missing) | (missing) | | (unavailable | 22:14 | [facility] | | | | ) | | [facility] | | | | + + + +-------+ + + + + | Result panel 68 | + + + + + +--------+ + + | | 2022-01-17 | [facility] | 0.65 | (missing) | (missing) | | (unavailable | 22:14 | [facility] | | | | ) | | [facility] | | | | + + + +--------+ + + + + | Result panel 69 | + + + + + +-------+ + + | | 2022-01-17 | [facility] | 0.4 | (missing) | (missing) | | (unavailable | 22:14 | [facility] | | [facility] ) | | [facility] | | | | + + + +-------+ + + + + | Result panel 70 | + + + + + +------+ + + | | 2022-01-17 | [facility] | 36 | (missing) | (missing) | | (unavailable | 22:14 | [facility] | | | | ) | | [facility] | | | | + + + +------+ + + + + | Result panel 71 | + + + + + +------+ + + | | 2022-01-17 | [facility] | 37 | (missing) | (missing) | | (unavailable | 22:14 | [facility] | | | | | ) | | [facility] | | | | + + + +------+ + + + + | Result panel 72 | + + + + + +--------+ + + | Automated | 2022-01-17 | [facility] | 32.6 | (missing) | (missing) | | erythrocyte | 22:14 | [facility] | | | | | mean | | Hospital | | | | | corpuscular | | | | | | | hemoglobin | | | | | | | concentratio | | | | | | | n | | | | | | | measurement | | | | | | | (mass/volume | | | | | | | ) | | | | | | + + + +--------+ + + + + | Result panel 73 | + + + + + +------+ + + | | 2022-01-17 | [facility] | 91 | (missing) | (missing) | | (unavailable | 22:14 | [facility] | | | | | ) | | [facility] | | | | + + + +------+ + + + + | Result panel 74 | + + + + + +--------+ + + | Automated | 2022-01-17 | [facility] | 76.8 | (missing) | (missing) | | blood | 22:14 | [facility] | | | | | neutrophil | | [facility] | | | | | count as | | | | | | | percentage | | | | | | | of total | | | | | | | leukocytes | | | | | | + + + +--------+ + + + + | Result panel 75 | + + + + + +--------+ + + | Automated | 2022-01-17 | [facility] | 10.9 | (missing) | (missing) | | blood | 22:14 | [facility] | | | | | lymphocyte | | Hospital | | | | | count as | | | | | | | percentage | | | | | | | ot total | | | | | | | leukocytes | | | | | | + + + +--------+ + + + + | Result panel 76 | + + + + + +-------+ + + | Automated | 2022-01-17 | [facility] | 9.4 | (missing) | (missing) | | blood | 22:14 | [facility] | | | | | monocyte | | Hospital | | | | | count as | | | | | | | percentage | | | | | | | of total | | | | | | | leukocytes | | | | | | + + + +-------+ + + + + | Result panel 77 | + + + + + +-------+ + + | Automated | 2022-01-17 | [facility] | 1.6 | (missing) | (missing) | | blood | 22:14 | [facility] | | | | | eosinophil | | Hospital | | | | | count as | | | | | | | percentage | | | | | | | of total | | | | | | | leukocytes | | | | | | + + + +-------+ + + + + | Result panel 78 | + + + + + +-------+ + + | Automated | 2022-01-17 | [facility] | 1.3 | (missing) | (missing) | | blood | 22:14 | [facility] | | | | | basophil | | Hospital | | | | | count as | | | | | | | percentage | | | | | | | of total | | | | | | | leukocytes | | | | | | + + + +-------+ + + + + | Result panel 79 | + + + + + +--------+ + + | Automated | 2022-01-17 | [facility] | 15.2 | (missing) | (missing) | | erythrocyte | 22:14 | [facility] | | | | | distribution | | Hospital | | | | | width | | | | | | + + + +--------+ + + + + | Result panel 80 | + + + + + +-------+ + + | Automated | 2022-01-17 | [facility] | 365 | (missing) | (missing) | | blood | 22:14 | [facility] | | | | | platelet | | Hospital | | | | | count | | | | | | | (count/volum | | | | | | | e) | | | | | | + + + +-------+ + + + + | Result panel 81 | + + + + + +-------+ + + | | 2022-01-22 | [facility] | 4.8 | (missing) | (missing) | | (unavailable | 13:14 | [facility] | | | | | ) | | [facility] | | | | + + + +-------+ + + + + | Result panel 82 | + + + + + +-------+ + + | | 2022-01-22 | [facility] | 105 | (missing) | (missing) | | (unavailable | 13:14 | [facility] | | | | | ) | | [facility] | | | | + + + +-------+ + + + + | Result panel 83 | + + + + + +------+ + + | | 2022-01-22 | [facility] | 25 | (missing) | (missing) | | (unavailable | 13:14 | [facility] | | | | | ) | | [facility] | | | | + + + +------+ + + + + | Result panel 84 | + + + + + +--------+ + + | | 2022-01-22 | [facility] | 15.8 | (missing) | (missing) | | (unavailable | 13:14 | [facility] | | | | | ) | | [facility] | | | | + + + +--------+ + + + + | Result panel 85 | + + + + + +-------+---------+ + | | 2022-01-22 | [facility] | 9.2 | mg/dL | (missing) | | (unavailable | 13:14 | [facility] | | | | | ) | | [facility] | | | | + + + +-------+---------+ + + + | Result panel 86 | + + + + + +-------+---------+ + | | 2022-01-22 | [facility] | 2.2 | mg/dL | (missing) | | (unavailable | 13:14 | [facility] | | | | | ) | | [facility] | | | | + + + +-------+---------+ + + + | Result panel 87 | + + + + + +-------+ + + | | 2022-01-22 | [facility] | 7.4 | (missing) | (missing) | | (unavailable | 13:14 | [facility] | | | | | ) | | [facility] | | | | + + + +-------+ + + + + | Result panel 88 | + + + + + +-------+ + + | | 2022-01-22 | [facility] | 2.8 | (missing) | (missing) | | (unavailable | 13:14 | [facility] | | | | | ) | | [facility] | | | | + + + +-------+ + + + + | Result panel 89 | + + + + + +-------+ + + | | 2022-01-22 | [facility] | 4.6 | (missing) | (missing) | | (unavailable | 13:14 | [facility] | | | | | ) | | [facility] | | | | + + + +-------+ + + + + | Result panel 90 | + + + + + +--------+ + + | | 2022-01-22 | [facility] | 0.61 | (missing) | (missing) | | (unavailable | 13:14 | [facility] | | | | | ) | | [facility] | | | | + + + +--------+ + + + + | Result panel 91 | + + + + + +-------+ + + | | 2022-01-22 | [facility] | 0.5 | (missing) | (missing) | | (unavailable | 13:14 | [facility] | | | | | ) | | [facility] | | | | + + + +-------+ + + + + | Result panel 92 | + + + + + +------+ + + | | 2022-01-22 | [facility] | 72 | (missing) | (missing) | | (unavailable | 13:14 | [facility] | | | | | ) | | [facility] | | | | + + + +------+ + + + + | Result panel 93 | + + + + + +-------+ + + | | 2022-01-22 | [facility] | 101 | (missing) | (missing) | | (unavailable | 13:14 | [facility] | | | | | ) | | [facility] | | | | + + + +-------+ + + + + | Result panel 94 | + + + + + +-------+ + + | | 2022-01-22 | [facility] | 131 | (missing) | (missing) | | (unavailable | 13:14 | [facility] | | | | | ) | | [facility] | | | | + + + +-------+ + + + + | Result panel 95 | + + + + + +--------+ + + | | 2022-01-22 | [facility] | 11.3 | (missing) | (missing) | | (unavailable | 13:14 | [facility] | | | | | ) | | [facility] | | | | + + + +--------+ + + + + | Result panel 96 | + + + + + +------+ + + | Manual | 2022-01-22 | [facility] | 82 | (missing) | (missing) | | blood | 13:14 | [facility] | | | | | segmented | | [facility] | | | | | neutrophils/ | | | | | | | 100 | | | | | | | leukocytes | | | | | | + + + +------+ + + + + | Result panel 97 | + + + + + +------+ + + | Manual | 2022-01-22 | [facility] | 15 | (missing) | (missing) | | blood | 13:14 | [facility] | | | | | lymphocytes/ | | [facility] | | | | | 100 | | | | | | | leukocytes | | | | | | + + + +------+ + + + + | Result panel 98 | + + + + + +-----+ + + | Manual | 2022-01-22 | [facility] | 2 | (missing) | (missing) | | blood | 13:14 | [facility] | | | | | monocytes/10 | | [facility] | | | | | 0 leukocytes | | | | | | | | | | | | | + + + +-----+ + + + + | Result panel 99 | + + + + + +-----+ + + | Manual | 2022-01-22 | [facility] | 1 | (missing) | (missing) | | blood band | 13:14 | [facility] | | | | | neutrophils | | Hospital | | | | | form/100 | | | | | | | leukocytes | | | | | | + + + +-----+ + + + + | Result panel 100 | + + + + + + + + + | Blood | 2022-01-22 | [facility] | PRESENT | (missing) | (missing) | | anisocytosis | 13:14 | [facility] | | | | | detection | | Hospital | | | | | by light | | | | | | | microscopy | | | | | | + + + + + + + + + | Result panel 101 | + + + + + + + + + | Blood | 2022-01-22 | [facility] | PRESENT | (missing) | (missing) | | polychromasi | 13:14 | [facility] | | | | | a detection | | Hospital | | | | | by light | | | | | | | microscopy | | | | | | + + + + + + + + + | Result panel 102 | + + + + + + + + + | Teardrop | 2022-01-22 | [facility] | PRESENT | (missing) | (missing) | | cell | 13:14 | [facility] | | | | | detection | | Hospital | | | | + + + + + + + + + | Result panel 103 | + + + + + +-------+ + + | Serum or | 2022-01-22 | [facility] | 2.2 | (missing) | (missing) | | plasma | 13:14 | [facility] | | | | | magnesium | | Hospital | | | | | measurement | | | | | | | (mass/volume | | | | | | | ) | | | | | | + + + +-------+ + + + + | Result panel 104 | + + + + + +--------+ + + | Serum or | 2022-01-22 | [facility] | 11.3 | (missing) | (missing) | | plasma | 13:14 | [facility] | | | | | cardiac | | Hospital | | | | | troponin I | | | | | | | measurement | | | | | | | by high | | | | | | | senstivity | | | | | | | method | | | | | | | (mass/volume | | | | | | | ) | | | | | | + + + +--------+ + + + + | Result panel 105 | + + + + + +------+ + + | | 2022-01-22 | [facility] | 82 | (missing) | (missing) | | (unavailable | 13:14 | [facility] | | | | | ) | | [facility] | | | | + + + +------+ + + + + | Result panel 106 | + + + + + +------+ + + | | 2022-01-22 | [facility] | 15 | (missing) | (missing) | | (unavailable | 13:14 | [facility] | | | | | ) | | [facility] | | | | + + + +------+ + + + + | Result panel 107 | + + + + + +-----+ + + | | 2022-01-22 | [facility] | 2 | (missing) | (missing) | | (unavailable | 13:14 | [facility] | | | | | ) | | [facility] | | | | + + + +-----+ + + + + | Result panel 108 | + + + + + +-----+ + + | | 2022-01-22 | [facility] | 1 | (missing) | (missing) | | (unavailable | 13:14 | [facility] | | | | | ) | | [facility] | | | | + + + +-----+ + + + + | Result panel 109 | + + + + + + + + + | | 2022-01-22 | [facility] | PRESENT | (missing) | (missing) | | (unavailable | 13:14 | [facility] | | | | | ) | | [facility] | | | | + + + + + + + + + | Result panel 110 | + + + + + + + + + | | 2022-01-22 | [facility] | PRESENT | (missing) | (missing) | | (unavailable | 13:14 | [facility] | | | | | ) | | [facility] | | | | + + + + + + + + + | Result panel 111 | + + + + + + + + + | | 2022-01-22 | [facility] | PRESENT | (missing) | (missing) | | (unavailable | 13:14 | [facility] | | | | | ) | | [facility] | | | | + + + + + + + + + | Result panel 112 | + + + + + +-------+---------+ + | | 2022-01-22 | [facility] | 2.2 | mg/dL | (missing) | | (unavailable | 13:14 | [facility] | | | | | ) | | [facility] | | | | + + + +-------+---------+ + + + | Result panel 113 | + + + + + +--------+ + + | | 2022-01-22 | [facility] | 11.3 | (missing) | (missing) | | (unavailable | 13:14 | [facility] | | | | + + + +--------+ + + + + | Result panel 114 | + + + + + +--------+ + + | | 2022-01-22 | [facility] | 17.5 | (missing) | (missing) | | (unavailable | 13:14 | [facility] | | | | + + + +--------+ + + + + | Result panel 115 | + + + + + +--------+ + + | | 2022-01-22 | [facility] | 2.64 | (missing) | (missing) | | (unavailable | 13:14 | [facility] | | | | + + + +--------+ + + + + | Result panel 116 | + + + + + +-------+ + + | | 2022-01-22 | [facility] | 7.9 | (missing) | (missing) | | (unavailable | 13:14 | [facility] | | | | + + + +-------+ + + + + | Result panel 117 | + + + + + +--------+ + + | | 2022-01-22 | [facility] | 25.2 | (missing) | (missing) | | (unavailable | 13:14 | [facility] | | | | + + + +--------+ + + + + | Result panel 118 | + + + + + +--------+ + + | | 2022-01-22 | [facility] | 95.4 | (missing) | (missing) | | (unavailable | 13:14 | [facility] | | | | + + + +--------+ + + + + | Result panel 119 | + + + + + +--------+ + + | | 2022-01-22 | [facility] | 30.1 | (missing) | (missing) | | (unavailable | 13:14 | [facility] | | | | + + + +--------+ + + + + | Result panel 120 | + + + + + +--------+ + + | | 2022-01-22 | [facility] | 31.6 | (missing) | (missing) | | (unavailable | 13:14 | [facility] | | | | + + + +--------+ + + + + | Result panel 121 | + + + + + +--------+ + + | | 2022-01-22 | [facility] | 15.4 | (missing) | (missing) | | (unavailable | 13:14 | [facility] | | | | + + + +--------+ + + + + | Result panel 122 | + + + + + +-------+ + + | | 2022-01-22 | [facility] | 568 | (missing) | (missing) | | (unavailable | 13:14 | [facility] | | | | + + + +-------+ + + + + | Result panel 123 | + + + + + +------+ + + | | 2022-01-22 | [facility] | 82 | (missing) | (missing) | | (unavailable | 13:14 | [facility] | | | | + + + +------+ + + + + | Result panel 124 | + + + + + +------+ + + | | 2022-01-22 | [facility] | 15 | (missing) | (missing) | | (unavailable | 13:14 | [facility] | | | | + + + +------+ + + + + | Result panel 125 | + + + + + +-----+ + + | | 2022-01-22 | [facility] | 2 | (missing) | (missing) | | (unavailable | 13:14 | [facility] | | | | + + + +-----+ + + + + | Result panel 126 | + + + + + +-----+ + + | | 2022-01-22 | [facility] | 1 | (missing) | (missing) | | (unavailable | 13:14 | [facility] | | | | + + + +-----+ + + + + | Result panel 127 | + + + + + + + + + | | 2022-01-22 | [facility] | PRESENT | (missing) | (missing) | | (unavailable | 13:14 | [facility] | | | | + + + + + + + + + | Result panel 128 | + + + + + + + + + | | 2022-01-22 | [facility] | PRESENT | (missing) | (missing) | | (unavailable | 13:14 | [facility] | | | | + + + + + + + + + | Result panel 129 | + + + + + + + + + | | 2022-01-22 | [facility] | PRESENT | (missing) | (missing) | | (unavailable | 13:14 | [facility] | | | | + + + + + + + + + | Result panel 130 | + + + + + +-------+---------+ + | | 2022-01-22 | [facility] | 253 | mg/dL | (missing) | | (unavailable | 13:14 | [facility] | [facility] | | [facility] | | | | + + + +-------+---------+ + + + | Result panel 131 | + + + + + +------+---------+ + | | 2022-01-22 | [facility] | 56 | mg/dL | (missing) | | (unavailable | 13:14 | [facility] | | | | + + + +------+---------+ + + + | Result panel 132 | + + + + + +--------+---------+ + | | 2022-01-22 | [facility] | 2.18 | mg/dL | (missing) | | (unavailable | 13:14 | [facility] | | | | + + + +--------+---------+ + + + | Result panel 133 | + + + + + +------+ + + | | 2022-01-22 | [facility] | 24 | (missing) | (missing) | | (unavailable | 13:14 | [facility] | | | | + + + +------+ + + + + | Result panel 134 | + + + + + +---------+ + + | | 2022-01-22 | [facility] | 25.68 | (missing) | (missing) | | (unavailable | 13:14 | [facility] | | | | + + + +---------+ + + + + | Result panel 135 | + + + + + +-------+ + + | | 2022-01-22 | [facility] | 141 | (missing) | (missing) | | (unavailable | 13:14 | [facility] | | | | + + + +-------+ + + + + | Result panel 136 | + + + + + +--------+ + + | | 2022-01-22 | [facility] | 22.2 | (missing) | (missing) | | (unavailable | 13:45 | [facility] | | | | + + + +--------+ + + + + | Result panel 137 | + + + + + +--------+ + + | | 2022-01-22 | [facility] | 2.01 | (missing) | (missing) | | (unavailable | 13:45 | [facility] | | | | + + + +--------+ + + + + | Result panel 138 | + + + + + +-----+ + + | | 2022-01-22 | [facility] | A | (missing) | (missing) | | (unavailable | 14:44 | [facility] | | | | + + + +-----+ + + + + | Result panel 139 | + + + + + + + + + | | 2022-01-22 | [facility] | NEGATIVE | (missing) | (missing) | | (unavailable | 14:44 | [facility] | [facility] | | | | + + + + + + + + + | Result panel 140 | + + + + + + + + + | | 2022-01-22 | [facility] | NEGATIVE | (missing) | (missing) | | (unavailable | 14:44 | [facility] ) | | [facility] | | | | + + + + + + + + + | Result panel 141 | + + + + + + + + + | | 2022-01-22 | [facility] | COMPATIBLE | (missing) | (missing) | | (unavailable | 14:44 | [facility] | [facility] | | | | + + + + + + + + + | Result panel 142 | + + + + + + + + + | | 2022-01-22 | [facility] | BLOOD IN | (missing) | (missing) | | (unavailable | 14:44 | [facility] | [facility] | | | | ) | | [facility] | | | | + + + + + + + + + | Result panel 143 | + + + + + +-----+ + + | Blood ABO | 2022-01-22 | [facility] | A | (missing) | (missing) | | group typing | 14:44 | [facility] | | | | | | | [facility] | | | | + + + +-----+ + + + + | Result panel 144 | + + + + + + + + + | Rh blood | 2022-01-22 | [facility] | NEGATIVE | (missing) | (missing) | | group typing | 14:44 | [facility] | | | | | | | [facility] | | | | + + + + + + + + + | Result panel 145 | + + + + + + + + + | Serum or | 2022-01-22 | [facility] | NEGATIVE | (missing) | (missing) | | plasma | 14:44 | [facility] | | | | | indirect | | Hospital | | | | | antiglobulin | | | | | | | test using | | | | | | | poly | | | | | | | specific | | | | | | | reagent | | | | | | + + + + + + + + + | Result panel 146 | + + + + + + + + + | Immediate | 2022-01-22 | [facility] | COMPATIBLE | (missing) | (missing) | | spin | 14:44 | [facility] | | | | | crossmatch | | [facility] | | | | + + + + + + + + + | Result panel 147 | + + + + + + + + + | Num units | 2022-01-22 | [facility] | | (missing) | (missing) | | trans packed | 14:44 | [facility] | [phone] | | | | RBC | | Hospital | 00E | | | + + + + + + + + + | Result panel 148 | + + + + + + + + + | Transf Band | 2022-01-22 | [facility] | BLOOD IN | (missing) | (missing) | | Num Patient | 14:44 | [facility] | LAB | | | | | | [facility] | | | | + + + + + + + + + | Result panel 149 | + + + + + +-----+ + + | | 2022-01-22 | [facility] | A | (missing) | (missing) | | (unavailable | 14:44 | [facility] | | | | | ) | | [facility] | | | | + + + +-----+ + + + + | Result panel 150 | + + + + + + + + + | | 2022-01-22 | [facility] | NEGATIVE | (missing) | (missing) | | (unavailable | 14:44 | [facility] | | | | | ) | | [facility] | | | | + + + + + + + + + | Result panel 151 | + + + + + + + + + | | 2022-01-22 | [facility] | NEGATIVE | (missing) | (missing) | | (unavailable | 14:44 | [facility] | | | | | ) | | [facility] | | | | + + + + + + + + + | Result panel 152 | + + + + + + + + + | | 2022-01-22 | [facility] | COMPATIBLE | (missing) | (missing) | | (unavailable | 14:44 | [facility] | | | | | ) | | [facility] | | | | + + + + + + + + + | Result panel 153 | + + + + + + + + + | | 2022-01-22 | [facility] | | (missing) | (missing) | | (unavailable | 14:44 | [facility] | [phone] | | | | ) | | [facility] | 00E | | | + + + + + + + + + | Result panel 154 | + + + + + + + + + | | 2022-01-22 | [facility] | BLOOD IN | (missing) | (missing) | | (unavailable | 14:44 | [facility] | LAB | | | | ) | | [facility] | | | | + + + + + + + + + | Result panel 155 | + + + + + + + + + | Respiratory | 2022-02-13 | [facility] | NEGATIVE | (missing) | (missing) | | specimen | 06:07 | [facility] | | | | | 2019 novel | | Hospital | | | | | coronavirus | | | | | | | RNA | | | | | | | detection | | | | | | + + + + + + + + + | Result panel 156 | + + + + + + + + + | | 2022-02-13 | [facility] | NEGATIVE | (missing) | (missing) | | (unavailable | 06:07 | [facility] | | | | | ) | | [facility] | | | | + + + + + + + + + | Result panel 157 | + + + + + + + + + | Gram stain | 2022-02-13 | [facility] | See scanned | (missing) | (missing) | | microscopy | 07:14 | [facility] | report. | | | | | | [facility] | | | | + + + + + + + + + | Result panel 158 | + + + + + + + + + | Aerobic | 2022-02-13 | [facility] | SEE | (missing) | (missing) | | bacterial | 07:14 | [facility] | SEPARATE | | | | culture | | Hospital | REPORT | | | + + + + + + + + + | Result panel 159 | + + + + + + + + + | Bacterial | 2022-02-13 | [facility] | SEE | (missing) | (missing) | | anaerobic | 07:14 | [facility] | SEPARATE | | | | culture | | Hospital | REPORT | | | + + + + + + + + + | Result panel 160 | + + + + + +-------+ + + | Serum or | 2022-02-13 | [facility] | 2.0 | (missing) | (missing) | | plasma | 07:41 | [facility] | | | | | lactate | | Hospital | | | | | measurement | | | | | | | (harvey/volum | | | | | | | e) | | | | | | + + + +-------+ + + + + | Result panel 161 | + + + + + +-------+ + + | | 2022-02-13 | [facility] | 2.0 | (missing) | (missing) | | (unavailable | 07:41 | [facility] | | | | | ) | | [facility] | | | | + + + +-------+ + + + + | Result panel 162 | + + + + + +--------+ + + | Blood | 2022-02-15 | [facility] | 12.1 | (missing) | (missing) | | leukocytes | 07:22 | [facility] | | | | | automated | | Hospital | | | | | count | | | | | | | (number/volu | | | | | | | me) | | | | | | + + + +--------+ + + + + | Result panel 163 | + + + + + +--------+ + + | Blood | 2022-02-15 | [facility] | 3.01 | (missing) | (missing) | | erythrocytes | 07:22 | [facility] | | | | | automated | | Hospital | | | | | count | | | | | | | (number/volu | | | | | | | me) | | | | | | + + + +--------+ + + + + | Result panel 164 | + + + + + +-------+ + + | Blood | 2022-02-15 | [facility] | 9.0 | (missing) | (missing) | | hemoglobin | 07:22 | [facility] | | | | | measurement | | Hospital | | | | | (mass/volume | | | | | | | ) | | | | | | + + + +-------+ + + + + | Result panel 165 | + + + + + +--------+ + + | Automated | 2022-02-15 | [facility] | 27.8 | (missing) | (missing) | | blood | 07:22 | [facility] | | | | | hematocrit | | Hospital | | | | + + + +--------+ + + + + | Result panel 166 | + + + + + +--------+ + + | Automated | 2022-02-15 | [facility] | 92.2 | (missing) | (missing) | | erythrocyte | 07:22 | [facility] | | | | | mean | | Hospital | | | | | corpuscular | | | | | | | volume | | | | | | + + + +--------+ + + + + | Result panel 167 | + + + + + +--------+ + + | Automated | 2022-02-15 | [facility] | 29.8 | (missing) | (missing) | | erythrocyte | 07:22 | [facility] | | | | | mean | | Hospital | | | | | corpuscular | | | | | | | hemoglobin | | | | | | | (mass per | | | | | | | erythrocyte) | | | | | | | | | | | | | + + + +--------+ + + + + | Result panel 168 | + + + + + +--------+ + + | Automated | 2022-02-15 | [facility] | 32.3 | (missing) | (missing) | | erythrocyte | 07:22 | [facility] | | | | | mean | | Hospital | | | | | corpuscular | | | | | | | hemoglobin | | | | | | | concentratio | | | | | | | n | | | | | | | measurement | | | | | | | (mass/volume | | | | | | | ) | | | | | | + + + +--------+ + + + + | Result panel 169 | + + + + + +--------+ + + | Automated | 2022-02-15 | [facility] | 15.4 | (missing) | (missing) | | erythrocyte | 07:22 | [facility] | | | | | distribution | | Hospital | | | | | width | | | | | | + + + +--------+ + + + + | Result panel 170 | + + + + + +-------+ + + | Automated | 2022-02-15 | [facility] | 344 | (missing) | (missing) | | blood | 07:22 | [facility] | | | | | platelet | | Hospital | | | | | count | | | | | | | (count/volum | | | | | | | e) | | | | | | + + + +-------+ + + + + | Result panel 171 | + + + + + +--------+ + + | Automated | 2022-02-15 | [facility] | 66.9 | (missing) | (missing) | | blood | 07:22 | [facility] | | | | | neutrophil | | Hospital | | | | | count as | | | | | | | percentage | | | | | | | of total | | | | | | | leukocytes | | | | | | + + + +--------+ + + + + | Result panel 172 | + + + + + +--------+ + + | Automated | 2022-02-15 | [facility] | 20.1 | (missing) | (missing) | | blood | 07:22 | [facility] | | | | | lymphocyte | | Hospital | | | | | count as | | | | | | | percentage | | | | | | | ot total | | | | | | | leukocytes | | | | | | + + + +--------+ + + + + | Result panel 173 | + + + + + +-------+ + + | Automated | 2022-02-15 | [facility] | 9.1 | (missing) | (missing) | | blood | 07:22 | [facility] | | | | | monocyte | | Hospital | | | | | count as | | | | | | | percentage | | | | | | | of total | | | | | | | leukocytes | | | | | | + + + +-------+ + + + + | Result panel 174 | + + + + + +-------+ + + | Automated | 2022-02-15 | [facility] | 3.3 | (missing) | (missing) | | blood | 07:22 | [facility] | | | | | eosinophil | | Hospital | | | | | count as | | | | | | | percentage | | | | | | | of total | | | | | | | leukocytes | | | | | | + + + +-------+ + + + + | Result panel 175 | + + + + + +-------+ + + | Automated | 2022-02-15 | [facility] | 0.6 | (missing) | (missing) | | blood | 07:22 | [facility] | | | | | basophil | | Hospital | | | | | count as | | | | | | | percentage | | | | | | | of total | | | | | | | leukocytes | | | | | | + + + +-------+ + + + + | Result panel 176 | + + + + + +--------+ + + | Prothrombin | 2022-02-15 | [facility] | 19.6 | (missing) | (missing) | | time (PT) | 07:22 | [facility] | | | | | in platelet | | Hospital | | | | | poor plasma | | | | | | | by | | | | | | | coagulation | | | | | | | assay | | | | | | + + + +--------+ + + + + | Result panel 177 | + + + + + +--------+ + + | INR in | 2022-02-15 | [facility] | 1.71 | (missing) | (missing) | | Platelet | 07:22 | [facility] | | | | | poor plasma | | Hospital | | | | | by | | | | | | | Coagulation | | | | | | | assay | | | | | | + + + +--------+ + + + + | Result panel 178 | + + + + + +--------+ + + | Activated | 2022-02-15 | [facility] | 56.3 | (missing) | (missing) | | partial | 07:22 | [facility] | | | | | thromboplast | | Hospital | | | | | in time | | | | | | | (aPTT) in | | | | | | | platelet | | | | | | | poor plasma | | | | | | | by | | | | | | | coagulation | | | | | | | assay | | | | | | + + + +--------+ + + + + | Result panel 179 | + + + + + +------+ + + | Serum or | 2022-02-15 | [facility] | 98 | (missing) | (missing) | | plasma | 07:22 | [facility] | | | | | glucose | | Hospital | | | | | measurement | | | | | | | (mass/volume | | | | | | | ) | | | | | | + + + +------+ + + + + | Result panel 180 | + + + + + +------+ + + | Serum or | 2022-02-15 | [facility] | 38 | (missing) | (missing) | | plasma urea | 07:22 | [facility] | | | | | nitrogen | | Hospital | | | | | measurement | | | | | | | (mass/volume | | | | | | | ) | | | | | | + + + +------+ + + + + | Result panel 181 | + + + + + +--------+ + + | Serum or | 2022-02-15 | [facility] | 1.86 | (missing) | (missing) | | plasma | 07:22 | [facility] | | | | | creatinine | | Hospital | | | | | measurement | | | | | | | (mass/volume | | | | | | | ) | | | | | | + + + +--------+ + + + + | Result panel 182 | + + + + + +------+ + + | Glomerular | 2022-02-15 | [facility] | 29 | (missing) | (missing) | | filtration | 07:22 | [facility] | | | | | rate/1.73 sq | | Hospital | | | | | M.predicted | | | | | | | [Volume | | | | | | | Rate/Area] | | | | | | | inSerum, | | | | | | | Plasma or | | | | | | | Blood by | | | | | | | Creatinine-b | | | | | | | ased formula | | | | | | | (CKD-EPI | | | | | | | 2020) | | | | | | + + + +------+ + + + + | Result panel 183 | + + + + + +---------+ + + | Serum or | 2022-02-15 | [facility] | 20.43 | (missing) | (missing) | | plasma urea | 07:22 | [facility] | | | | | nitrogen/cre | | Hospital | | | | | atinine mass | | | | | | | ratio | | | | | | + + + +---------+ + + + + | Result panel 184 | + + + + + +-------+ + + | Serum or | 2022-02-15 | [facility] | 141 | (missing) | (missing) | | plasma | 07:22 | [facility] | | | | | sodium | | Hospital | | | | | measurement | | | | | | | (moles/volum | | | | | | | e) | | | | | | + + + +-------+ + + + + | Result panel 185 | + + + + + +-------+ + + | Serum or | 2022-02-15 | [facility] | 3.8 | (missing) | (missing) | | plasma | 07:22 | [facility] | | | | | potassium | | Hospital | | | | | measurement | | | | | | | (moles/volum | | | | | | | e) | | | | | | + + + +-------+ + + + + | Result panel 186 | + + + + + +-------+ + + | Serum or | 2022-02-15 | [facility] | 104 | (missing) | (missing) | | plasma | 07:22 | [facility] | | | | | chloride | | Hospital | | | | | measurement | | | | | | | (moles/volum | | | | | | | e) | | | | | | + + + +-------+ + + + + | Result panel 187 | + + + + + +------+ + + | Serum or | 2022-02-15 | [facility] | 28 | (missing) | (missing) | | plasma | 07:22 | [facility] | | | | | carbon | | Hospital | | | | | dioxide, | | | | | | | total | | | | | | | measurement | | | | | | | (moles/volum | | | | | | | e) | | | | | | + + + +------+ + + + + | Result panel 188 | + + + + + +--------+ + + | Serum or | 2022-02-15 | [facility] | 12.8 | (missing) | (missing) | | plasma anion | 07:22 | [facility] | | | | | gap 4 | | Hospital | | | | + + + +--------+ + + + + | Result panel 189 | + + + + + +-------+ + + | Serum or | 2022-02-15 | [facility] | 8.3 | (missing) | (missing) | | plasma | 07:22 | [facility] | | | | | calcium | | Hospital | | | | | measurement | | | | | | | (mass/volume | | | | | | | ) | | | | | | + + + +-------+ + + + + | Result panel 190 | + + + + + +-------+ + + | Serum or | 2022-02-15 | [facility] | 6.7 | (missing) | (missing) | | plasma | 07:22 | [facility] | | | | | protein | | Hospital | | | | | measurement | | | | | | | (mass/volume | | | | | | | ) | | | | | | + + + +-------+ + + + + | Result panel 191 | + + + + + +-------+ + + | Serum or | 2022-02-15 | [facility] | 2.9 | (missing) | (missing) | | plasma | 07:22 | [facility] | | | | | albumin | | Hospital | | | | | measurement | | | | | | | (mass/volume | | | | | | | ) | | | | | | + + + +-------+ + + + + | Result panel 192 | + + + + + +-------+ + + | Serum | 2022-02-15 | [facility] | 3.8 | (missing) | (missing) | | globulin | 07:22 | [facility] | | | | | measurement | | Hospital | | | | | (mass/volume | | | | | | | ) | | | | | | + + + +-------+ + + + + | Result panel 193 | + + + + + +--------+ + + | Serum or | 2022-02-15 | [facility] | 0.76 | (missing) | (missing) | | plasma | 07:22 | [facility] | | | | | albumin/glob | | Hospital | | | | | ulin mass | | | | | | | ratio | | | | | | + + + +--------+ + + + + | Result panel 194 | + + + + + +-------+ + + | Serum or | 2022-02-15 | [facility] | 0.4 | (missing) | (missing) | | plasma total | 07:22 | [facility] | | | | | bilirubin | | Hospital | | | | | measurement | | | | | | | (mass/volume | | | | | | | ) | | | | | | + + + +-------+ + + + + | Result panel 195 | + + + + + +------+ + + | Serum or | 2022-02-15 | [facility] | 22 | (missing) | (missing) | | plasma | 07:22 | [facility] | | | | | aspartate | | Hospital | | | | | aminotransfe | | | | | | | rase | | | | | | | measurement | | | | | | | (enzymatic | | | | | | | activity/vol | | | | | | | ume) | | | | | | + + + +------+ + + + + | Result panel 196 | + + + + + +------+ + + | Serum or | 2022-02-15 | [facility] | 24 | (missing) | (missing) | | plasma | 07:22 | [facility] | | | | | alanine | | Hospital | | | | | aminotransfe | | | | | | | rase | | | | | | | measurement | | | | | | | (enzymatic | | | | | | | activity/vol | | | | | | | ume) | | | | | | + + + +------+ + + + + | Result panel 197 | + + + + + +-------+ + + | Serum or | 2022-02-15 | [facility] | 106 | (missing) | (missing) | | plasma | 07:22 | [facility] | | | | | alkaline | | Hospital | | | | | phosphatase | | | | | | | measurement | | | | | | | (enzymatic | | | | | | | activity/vol | | | | | | | ume) | | | | | | + + + +-------+ + + + + | Result panel 198 | + + + + + +--------+ + + | | 2022-02-15 | [facility] | 12.1 | (missing) | (missing) | | (unavailable | 07:22 | [facility] | | | | | ) | | [facility] | | | | + + + +--------+ + + + + | Result panel 199 | + + + + + +--------+ + + | | 2022-02-15 | [facility] | 3.01 | (missing) | (missing) | | (unavailable | 07:22 | [facility] | | | | | ) | | [facility] | | | | + + + +--------+ + + + + | Result panel 200 | + + + + + +-------+ + + | | 2022-02-15 | [facility] | 9.0 | (missing) | (missing) | | (unavailable | 07:22 | [facility] | | | | | ) | | [facility] | | | | + + + +-------+ + + + + | Result panel 201 | + + + + + +--------+ + + | | 2022-02-15 | [facility] | 27.8 | (missing) | (missing) | | (unavailable | 07:22 | [facility] | | | | | ) | | [facility] | | | | + + + +--------+ + + + + | Result panel 202 | + + + + + +--------+ + + | | 2022-02-15 | [facility] | 92.2 | (missing) | (missing) | | (unavailable | 07:22 | [facility] | | | | | ) | | [facility] | | | | + + + +--------+ + + + + | Result panel 203 | + + + + + +--------+ + + | | 2022-02-15 | [facility] | 29.8 | (missing) | (missing) | | (unavailable | 07:22 | [facility] | | | | | ) | | [facility] | | | | + + + +--------+ + + + + | Result panel 204 | + + + + + +--------+ + + | | 2022-02-15 | [facility] | 32.3 | (missing) | (missing) | | (unavailable | 07:22 | [facility] | | | | | ) | | [facility] | | | | + + + +--------+ + + + + | Result panel 205 | + + + + + +--------+ + + | | 2022-02-15 | [facility] | 15.4 | (missing) | (missing) | | (unavailable | 07:22 | [facility] | | | | | ) | | [facility] | | | | + + + +--------+ + + + + | Result panel 206 | + + + + + +-------+ + + | | 2022-02-15 | [facility] | 344 | (missing) | (missing) | | (unavailable | 07:22 | [facility] | | | | | ) | | [facility] | | | | + + + +-------+ + + + + | Result panel 207 | + + + + + +--------+ + + | | 2022-02-15 | [facility] | 66.9 | (missing) | (missing) | | (unavailable | 07:22 | [facility] | | | | | ) | | [facility] | | | | + + + +--------+ + + + + | Result panel 208 | + + + + + +--------+ + + | | 2022-02-15 | [facility] | 20.1 | (missing) | (missing) | | (unavailable | 07:22 | [facility] | | | | | ) | | [facility] | | | | + + + +--------+ + + + + | Result panel 209 | + + + + + +-------+ + + | | 2022-02-15 | [facility] | 9.1 | (missing) | (missing) | | (unavailable | 07:22 | [facility] | | | | | ) | | [facility] | | | | + + + +-------+ + + + + | Result panel 210 | + + + + + +-------+ + + | | 2022-02-15 | [facility] | 3.3 | (missing) | (missing) | | (unavailable | 07:22 | [facility] | | | | | ) | | [facility] | | | | + + + +-------+ + + + + | Result panel 211 | + + + + + +-------+ + + | | 2022-02-15 | [facility] | 0.6 | (missing) | (missing) | | (unavailable | 07:22 | [facility] | | | | | ) | | [facility] | | | | + + + +-------+ + + + + | Result panel 212 | + + + + + +--------+ + + | | 2022-02-15 | [facility] | 19.6 | (missing) | (missing) | | (unavailable | 07:22 | [facility] | | | | | ) | | [facility] | | | | + + + +--------+ + + + + | Result panel 213 | + + + + + +--------+ + + | | 2022-02-15 | [facility] | 1.71 | (missing) | (missing) | | (unavailable | 07:22 | [facility] | | | | | ) | | [facility] | | | | + + + +--------+ + + + + | Result panel 214 | + + + + + +--------+ + + | | 2022-02-15 | [facility] | 56.3 | (missing) | (missing) | | (unavailable | 07:22 | [facility] | | | | | ) | | [facility] | | | | + + + +--------+ + + + + | Result panel 215 | + + + + + +------+---------+ + | | 2022-02-15 | [facility] | 98 | mg/dL | (missing) | | (unavailable | 07:22 | [facility] | | | | | ) | | [facility] | | | | + + + +------+---------+ + + + | Result panel 216 | + + + + + +------+---------+ + | | 2022-02-15 | [facility] | 38 | mg/dL | (missing) | | (unavailable | 07:22 | [facility] | | | | | ) | | [facility] | | | | + + + +------+---------+ + + + | Result panel 217 | + + + + + +--------+---------+ + | | 2022-02-15 | [facility] | 1.86 | mg/dL | (missing) | | (unavailable | 07:22 | [facility] | | | | | ) | | [facility] | | | | + + + +--------+---------+ + + + | Result panel 218 | + + + + + +------+ + + | | 2022-02-15 | [facility] | 29 | (missing) | (missing) | | (unavailable | 07:22 | [facility] | | | | | ) | | [facility] | | | | + + + +------+ + + + + | Result panel 219 | + + + + + +---------+ + + | | 2022-02-15 | [facility] | 20.43 | (missing) | (missing) | | (unavailable | 07:22 | [facility] | | [facility] | | | | + + + +---------+ + + + + | Result panel 220 | + + + + + +-------+ + + | | 2022-02-15 | [facility] | 141 | (missing) | (missing) | | (unavailable | 07:22 | [facility] | | | | + + + +-------+ + + + + | Result panel 221 | + + + + + +-------+ + + | | 2022-02-15 | [facility] | 3.8 | (missing) | (missing) | | (unavailable | 07:22 | [facility] | | | | + + + +-------+ + + + + | Result panel 222 | + + + + + +-------+ + + | | 2022-02-15 | [facility] | 104 | (missing) | (missing) | | (unavailable | 07:22 | [facility] | | | | + + + +-------+ + + + + | Result panel 223 | + + + + + +------+ + + | | 2022-02-15 | [facility] | 28 | (missing) | (missing) | | (unavailable | 07:22 | [facility] | | | | + + + +------+ + + + + | Result panel 224 | + + + + + +--------+ + + | | 2022-02-15 | [facility] | 12.8 | (missing) | (missing) | | (unavailable | 07:22 | [facility] | | | | + + + +--------+ + + + + | Result panel 225 | + + + + + +-------+---------+ + | | 2022-02-15 | [facility] | 8.3 | mg/dL | (missing) | | (unavailable | 07:22 | [facility] | | | | + + + +-------+---------+ + + + | Result panel 226 | + + + + + +-------+ + + | | 2022-02-15 | [facility] | 6.7 | (missing) | (missing) | | (unavailable | 07:22 | [facility] | | | | + + + +-------+ + + + + | Result panel 227 | + + + + + +-------+ + + | | 2022-02-15 | [facility] | 2.9 | (missing) | (missing) | | (unavailable | 07:22 | [facility] | | | | + + + +-------+ + + + + | Result panel 228 | + + + + + +-------+ + + | | 2022-02-15 | [facility] | 3.8 | (missing) | (missing) | | (unavailable | 07:22 | [facility] | | | | + + + +-------+ + + + + | Result panel 229 | + + + + + +--------+ + + | | 2022-02-15 | [facility] | 0.76 | (missing) | (missing) | | (unavailable | 07:22 | [facility] | | | | + + + +--------+ + + + + | Result panel 230 | + + + + + +-------+ + + | | 2022-02-15 | [facility] | 0.4 | (missing) | (missing) | | (unavailable | 07:22 | [facility] | | | | + + + +-------+ + + + + | Result panel 231 | + + + + + +------+ + + | | 2022-02-15 | [facility] | 22 | (missing) | (missing) | | (unavailable | 07:22 | [facility] | | | | + + + +------+ + + + + | Result panel 232 | + + + + + +------+ + + | | 2022-02-15 | [facility] | 24 | (missing) | (missing) | | (unavailable | 07:22 | [facility] | | | | + + + +------+ + + + + | Result panel 233 | + + + + + +-------+ + + | | 2022-02-15 | [facility] | 106 | (missing) | (missing) | | (unavailable | 07:22 | [facility] | | | | + + + +-------+ + + + + | Result panel 234 | + + + + + +-------+ + + | | 2022-02-17 | [facility] | 171 | (missing) | (missing) | | (unavailable | 08:17 | [facility] | [facility] | | | | + + + +-------+ + + + + | Serum or plasma indirect antiglobulin test using poly specific reagent | + + + + + + + + + | Serum or | 2022-01-22 | [facility] | NEGATIVE | (missing) | (missing) | | plasma | 14:44 | [facility] | | | | | indirect | | [facility] | | | | | antiglobulin | | | | | | | test using | | | | | | | poly | | | | | | | specific | | | | | | | reagent | | | | | | + + + + + + + + + | Rh blood group typing | + + + + + + + + + | Rh blood | 2022-01-22 | [facility] | NEGATIVE | (missing) | (missing) | | group typing | 14:44 | [facility] | | | | | | | [facility] | | | | + + + + + + + + + | Blood polychromasia detection by light microscopy | + + + + + + + + + | Blood | 2022-01-22 | [facility] | PRESENT | (missing) | (missing) | | polychromasi | 13:14 | [facility] | | | | | a detection | | Hospital | | | | | by light | | | | | | | microscopy | | | | | | + + + + + + + + + | Immediate spin crossmatch | + + + + + + + + + | Immediate | 2022-01-22 | [facility] | COMPATIBLE | (missing) | (missing) | | spin | 14:44 | [facility] | | | | | crossmatch | | Hospital | | | | + + + + + + + + + | Serum or plasma alanine aminotransferase measurement (enzymatic activity/volume) | + + + + + +-------+ + + | Serum or | 2022-01-22 | [facility] | 101 | (missing) | (missing) | | plasma | 13:14 | [facility] | | | | | alanine | | Hospital | | | | | aminotransfe | | | | | | | rase | | | | | | | measurement | | | | | | | (enzymatic | | | | | | | activity/vol | | | | | | | ume) | | | | | | + + + +-------+ + + + + | Serum or plasma albumin measurement (mass/volume) | + + + + + +-------+ + + | Serum or | 2022-01-22 | [facility] | 2.8 | (missing) | (missing) | | plasma | 13:14 | [facility] | | | | | albumin | | Hospital | | | | | measurement | | | | | | | (mass/volume | | | | | | | ) | | | | | | + + + +-------+ + + + + | Serum or plasma albumin/globulin mass ratio | + + + + + +--------+ + + | Serum or | 2022-01-22 | [facility] | 0.61 | (missing) | (missing) | | plasma | 13:14 | [facility] | | | | | albumin/glob | | Hospital | | | | | ulin mass | | | | | | | ratio | | | | | | + + + +--------+ + + + + | Serum or plasma calcium measurement (mass/volume) | + + + + + +-------+ + + | Serum or | 2022-01-22 | [facility] | 9.2 | (missing) | (missing) | | plasma | 13:14 | [facility] | | | | | calcium | | Hospital | | | | | measurement | | | | | | | (mass/volume | | | | | | | ) | | | | | | + + + +-------+ + + + + | Serum or plasma anion gap 4 | + + + + + +--------+ + + | Serum or | 2022-01-22 | [facility] | 15.8 | (missing) | (missing) | | plasma anion | 13:14 | [facility] | | | | | gap 4 | | Hospital | | | | + + + +--------+ + + + + | Serum or plasma magnesium measurement (mass/volume) | + + + + + +-------+ + + | Serum or | 2022-01-22 | [facility] | 2.2 | (missing) | (missing) | | plasma | 13:14 | [facility] | | | | | magnesium | | Hospital | | | | | measurement | | | | | | | (mass/volume | | | | | | | ) | | | | | | + + + +-------+ + + + + | Serum or plasma aspartate aminotransferase measurement (enzymatic activity/volume) | + + + + + +------+ + + | Serum or | 2022-01-22 | [facility] | 72 | (missing) | (missing) | | plasma | 13:14 | [facility] | | | | | aspartate | | Hospital | | | | | aminotransfe | | | | | | | rase | | | | | | | measurement | | | | | | | (enzymatic | | | | | | | activity/vol | | | | | | | ume) | | | | | | + + + +------+ + + + + | Serum or plasma total bilirubin measurement (mass/volume) | + + + + + +-------+ + + | Serum or | 2022-01-22 | [facility] | 0.5 | (missing) | (missing) | | plasma total | 13:14 | [facility] | | | | | bilirubin | | Hospital | | | | | measurement | | | | | | | (mass/volume | | | | | | | ) | | | | | | + + + +-------+ + + + + | Serum or plasma carbon dioxide, total measurement (moles/volume) | + + + + + +------+ + + | Serum or | 2022-01-22 | [facility] | 25 | (missing) | (missing) | | plasma | 13:14 | [facility] | | | | | carbon | | Hospital | | | | | dioxide, | | | | | | | total | | | | | | | measurement | | | | | | | (moles/volum | | | | | | | e) | | | | | | + + + +------+ + + + + | Serum or plasma chloride measurement (moles/volume) | + + + + + +-------+ + + | Serum or | 2022-01-22 | [facility] | 105 | (missing) | (missing) | | plasma | 13:14 | [facility] | | | | | chloride | | Hospital | | | | | measurement | | | | | | | (moles/volum | | | | | | | e) | | | | | | + + + +-------+ + + + + | Automated erythrocyte distribution width | + + + + + +--------+ + + | Automated | 2022-01-22 | [facility] | 15.4 | (missing) | (missing) | | erythrocyte | 13:14 | [facility] | | | | | distribution | | Hospital | | | | | width | | | | | | + + + +--------+ + + + + | Serum or plasma creatinine measurement (mass/volume) | + + + + + +--------+ + + | Serum or | 2022-01-22 | [facility] | 2.18 | (missing) | (missing) | | plasma | 13:14 | [facility] | | | | | creatinine | | Hospital | | | | | measurement | | | | | | | (mass/volume | | | | | | | ) | | | | | | + + + +--------+ + + + + | Serum globulin measurement (mass/volume) | + + + + + +-------+ + + | Serum | 2022-01-22 | [facility] | 4.6 | (missing) | (missing) | | globulin | 13:14 | [facility] | | | | | measurement | | Hospital | | | | | (mass/volume | | | | | | | ) | | | | | | + + + +-------+ + + + + | Serum or plasma glucose measurement (mass/volume) | + + + + + +-------+ + + | Serum or | 2022-01-22 | [facility] | 253 | (missing) | (missing) | | plasma | 13:14 | [facility] | | | | | glucose | | Hospital | | | | | measurement | | | | | | | (mass/volume | | | | | | | ) | | | | | | + + + +-------+ + + + + | Serum or plasma potassium measurement (moles/volume) | + + + + + +-------+ + + | Serum or | 2022-01-22 | [facility] | 4.8 | (missing) | (missing) | | plasma | 13:14 | [facility] | | | | | potassium | | Hospital | | | | | measurement | | | | | | | (moles/volum | | | | | | | e) | | | | | | + + + +-------+ + + + + | Serum or plasma protein measurement (mass/volume) | + + + + + +-------+ + + | Serum or | 2022-01-22 | [facility] | 7.4 | (missing) | (missing) | | plasma | 13:14 | [facility] | | | | | protein | | Hospital | | | | | measurement | | | | | | | (mass/volume | | | | | | | ) | | | | | | + + + +-------+ + + + + | Serum or plasma sodium measurement (moles/volume) | + + + + + +-------+ + + | Serum or | 2022-01-22 | [facility] | 141 | (missing) | (missing) | | plasma | 13:14 | [facility] | | | | | sodium | | Hospital | | | | | measurement | | | | | | | (moles/volum | | | | | | | e) | | | | | | + + + +-------+ + + + + | Serum or plasma urea nitrogen measurement (mass/volume) | + + + + + +------+ + + | Serum or | 2022-01-22 | [facility] | 56 | (missing) | (missing) | | plasma urea | 13:14 | [facility] | | | | | nitrogen | | Hospital | | | | | measurement | | | | | | | (mass/volume | | | | | | | ) | | | | | | + + + +------+ + + + + | Serum or plasma urea nitrogen/creatinine mass ratio | + + + + + +---------+ + + | Serum or | 2022-01-22 | [facility] | 25.68 | (missing) | (missing) | | plasma urea | 13:14 | [facility] | | | | | nitrogen/cre | | Hospital | | | | | atinine mass | | | | | | | ratio | | | | | | + + + +---------+ + + + + | Transf Band Num Patient | + + + + + + + + + | Transf Band | 2022-01-22 | [facility] | BLOOD IN | (missing) | (missing) | | Num Patient | 14:44 | [facility] | LAB | | | | | | [facility] | | | | + + + + + + + + + | Prothrombin time (PT) in platelet poor plasma by coagulation assay | + + + + + +--------+ + + | Prothrombin | 2022-01-22 | [facility] | 22.2 | (missing) | (missing) | | time (PT) | 13:45 | [facility] | | | | | in platelet | | Hospital | | | | | poor plasma | | | | | | | by | | | | | | | coagulation | | | | | | | assay | | | | | | + + + +--------+ + + + + | INR in Platelet poor plasma by Coagulation assay | + + + + + +--------+ + + | INR in | 2022-01-22 | [facility] | 2.01 | (missing) | (missing) | | Platelet | 13:45 | [facility] | | | | | poor plasma | | Hospital | | | | | by | | | | | | | Coagulation | | | | | | | assay | | | | | | + + + +--------+ + + + + | Gram stain microscopy | + + + + + +-------+ + + | Whole blood | 2022-02-17 | [facility] | 171 | (missing) | (missing) | | glucose | 08:17 | [facility] | | | | | measurement | | Hospital | | | | | using | | | | | | | handheld | | | | | | | analyzer | | | | | | | (mass/volume | | | | | | | ) | | | | | | + + + +-------+ + + + + | Blood leukocytes automated count (number/volume) | + + + + + +--------+ + + | Blood | 2022-01-22 | [facility] | 17.5 | (missing) | (missing) | | leukocytes | 13:14 | [facility] | | | | | automated | | Hospital | | | | | count | | | | | | | (number/volu | | | | | | | me) | | | | | | + + + +--------+ + + + + | Serum or plasma alkaline phosphatase measurement (enzymatic activity/volume) | + + + + + +-------+ + + | Serum or | 2022-01-22 | [facility] | 131 | (missing) | (missing) | | plasma | 13:14 | [facility] | | | | | alkaline | | Hospital | | | | | phosphatase | | | | | | | measurement | | | | | | | (enzymatic | | | | | | | activity/vol | | | | | | | ume) | | | | | | + + + +-------+ + + + + | Blood anisocytosis detection by light microscopy | + + + + + + + + + | Blood | 2022-01-22 | [facility] | PRESENT | (missing) | (missing) | | anisocytosis | 13:14 | [facility] | | | | | detection | | Hospital | | | | | by light | | | | | | | microscopy | | | | | | + + + + + + + + + | Blood hemoglobin measurement (mass/volume) | + + + + + +-------+ + + | Blood | 2022-01-22 | [facility] | 7.9 | (missing) | (missing) | | hemoglobin | 13:14 | [facility] | | | | | measurement | | Hospital | | | | | (mass/volume | | | | | | | ) | | | | | | + + + +-------+ + + + + | Automated blood hematocrit | + + + + + +--------+ + + | Automated | 2022-01-22 | [facility] | 25.2 | (missing) | (missing) | | blood | 13:14 | [facility] | | | | | hematocrit | | Hospital | | | | + + + +--------+ + + + + | Manual blood lymphocytes/100 leukocytes | + + + + + +------+ + + | Manual | 2022-01-22 | [facility] | 15 | (missing) | (missing) | | blood | 13:14 | [facility] | | | | | lymphocytes/ | | Hospital | | | | | 100 | | | | | | | leukocytes | | | | | | + + + +------+ + + + + | Manual blood monocytes/100 leukocytes | + + + + + +-----+ + + | Manual | 2022-01-22 | [facility] | 2 | (missing) | (missing) | | blood | 13:14 | [facility] | | | | | monocytes/10 | | Hospital | | | | | 0 leukocytes | | | | | | | | | | | | | + + + +-----+ + + + + | Manual blood band neutrophils form/100 leukocytes | + + + + + +-----+ + + | Manual | 2022-01-22 | [facility] | 1 | (missing) | (missing) | | blood band | 13:14 | [facility] | | | | | neutrophils | | Hospital | | | | | form/100 | | | | | | | leukocytes | | | | | | + + + +-----+ + + + + | Manual blood segmented neutrophils/100 leukocytes | + + + + + +------+ + + | Manual | 2022-01-22 | [facility] | 82 | (missing) | (missing) | | blood | 13:14 | [facility] | | | | | segmented | | Hospital | | | | | neutrophils/ | | | | | | | 100 | | | | | | | leukocytes | | | | | | + + + +------+ + + + + | Automated blood platelet count (count/volume) | + + + + + +-------+ + + | Automated | 2022-01-22 | [facility] | 568 | (missing) | (missing) | | blood | 13:14 | [facility] | | | | | platelet | | Hospital | | | | | count | | | | | | | (count/volum | | | | | | | e) | | | | | | + + + +-------+ + + + + | Teardrop cell detection | + + + + + + + + + | Teardrop | 2022-01-22 | [facility] | PRESENT | (missing) | (missing) | | cell | 13:14 | [facility] | | | | | detection | | Hospital | | | | + + + + + + + + + | Automated erythrocyte mean corpuscular hemoglobin (mass per erythrocyte) | + + + + + +--------+ + + | Automated | 2022-01-22 | [facility] | 30.1 | (missing) | (missing) | | erythrocyte | 13:14 | [facility] | | | | | mean | | Hospital | | | | | corpuscular | | | | | | | hemoglobin | | | | | | | (mass per | | | | | | | erythrocyte) | | | | | | | | | | | | | + + + +--------+ + + + + | Automated erythrocyte mean corpuscular hemoglobin concentration measurement | | (mass/volume) | + + + + + +--------+ + + | Automated | 2022-01-22 | [facility] | 31.6 | (missing) | (missing) | | erythrocyte | 13:14 | [facility] | | | | | mean | | Hospital | | | | | corpuscular | | | | | | | hemoglobin | | | | | | | concentratio | | | | | | | n | | | | | | | measurement | | | | | | | (mass/volume | | | | | | | ) | | | | | | + + + +--------+ + + + + | Automated erythrocyte mean corpuscular volume | + + + + + +--------+ + + | Automated | 2022-01-22 | [facility] | 95.4 | (missing) | (missing) | | erythrocyte | 13:14 | [facility] | | | | | mean | | Hospital | | | | | corpuscular | | | | | | | volume | | | | | | + + + +--------+ + + + + | Blood erythrocytes automated count (number/volume) | + + + + + +--------+ + + | Blood | 2022-01-22 | [facility] | 2.64 | (missing) | (missing) | | erythrocytes | 13:14 | [facility] | | | | | automated | | Hospital | | | | | count | | | | | | | (number/volu | | | | | | | me) | | | | | | + + + +--------+ + + + + | Blood ABO group typing | + + + + + +-----+ + + | Blood ABO | 2022-01-22 | [facility] | A | (missing) | (missing) | | group typing | 14:44 | [facility] | | | | | | | [facility] | | | | + + + +-----+ + + + + | Serum or plasma cardiac troponin I measurement by high senstivity method (mass/volume) | + + + + + +--------+ + + | Serum or | 2022-01-22 | [facility] | 11.3 | (missing) | (missing) | | plasma | 13:14 | [facility] | | | | | cardiac | | Hospital | | | | | troponin I | | | | | | | measurement | | | | | | | by high | | | | | | | senstivity | | | | | | | method | | | | | | | (mass/volume | | | | | | | ) | | | | | | + + + +--------+ + + + + | Glomerular filtration rate/1.73 sq M.predicted [Volume Rate/Area] inSerum, Plasma or | | Blood by Creatinine-based formula (CKD-EPI 2020) | + + + + + +------+ + + | Glomerular | 2022-01-22 | [facility] | 24 | (missing) | (missing) | | filtration | 13:14 | [facility] | | | | | rate/1.73 sq | | Hospital | | | | | M.predicted | | | | | | | [Volume | | | | | | | Rate/Area] | | | | | | | inSerum, | | | | | | | Plasma or | | | | | | | Blood by | | | | | | | Creatinine-b | | | | | | | ased formula | | | | | | | (CKD-EPI | | | | | | | 2020) | | | | | | + + + +------+ + + Social History + + + + | date | description | facility | + + + + | 2022-01-18 00:00 | Current every day smoker | [facility] | + + + + | 2022-01-22 00:00 | Current every day smoker | [facility] | + + + + | 2022-02-17 00:00 | Current every day smoker | [facility] | + + + + Vital Signs + + + +---------+ | date | measurement | value | units | + + + +---------+ | 2022-01-06 00:00 | BP_diastolic | 58 | mmHg | + + + +---------+ | 2022-01-06 00:00 | BP_systolic | 123 | mmHg | + + + +---------+ | 2022-01-06 00:00 | heart_rate | 76 | /min | + + + +---------+ | 2022-01-17 00:00 | BMI | 40.8 | kg/m2 | + + + +---------+ | 2022-01-17 00:00 | height_metric | 165.1 | cm | + + + +---------+ | 2022-01-17 00:00 | height_standard | 65 | in | + + + +---------+ | 2022-01-17 00:00 | weight_metric | 111.13 | kg | + + + +---------+ | 2022-01-17 00:00 | weight_standard | 245 | lb | + + + +---------+ | 2022-01-18 00:00 | BP_diastolic | 80 | mmHg | + + + +---------+ | 2022-01-18 00:00 | BP_systolic | 146 | mmHg | + + + +---------+ | 2022-01-18 00:00 | heart_rate | 89 | /min | + + + +---------+ | 2022-01-18 00:00 | o2_saturation | 98 | % | + + + +---------+ | 2022-01-18 00:00 | respiration_rate | 16 | /min | + + + +---------+ | 2022-01-18 00:00 | temperature_metric | 36.72 | C | | | | | | + + + +---------+ | 2022-01-18 00:00 | | 98.1 | F | | | temperature_standar | | | | | d | | | + + + +---------+ | 2022-01-20 00:00 | BP_diastolic | 82 | mmHg | + + + +---------+ | 2022-01-20 00:00 | BP_systolic | 147 | mmHg | + + + +---------+ | 2022-01-20 00:00 | heart_rate | 101 | /min | + + + +---------+ | 2022-01-22 00:00 | BMI | 42.9 | kg/m2 | + + + +---------+ | 2022-01-22 00:00 | BP_diastolic | 53 | mmHg | + + + +---------+ | 2022-01-22 00:00 | BP_systolic | 122 | mmHg | + + + +---------+ | 2022-01-22 00:00 | heart_rate | 79 | /min | + + + +---------+ | 2022-01-22 00:00 | height_metric | 165.1 | cm | + + + +---------+ | 2022-01-22 00:00 | height_standard | 65 | in | + + + +---------+ | 2022-01-22 00:00 | o2_saturation | 99 | % | + + + +---------+ | 2022-01-22 00:00 | respiration_rate | 15 | /min | + + + +---------+ | 2022-01-22 00:00 | temperature_metric | 37.06 | C | | | | | | + + + +---------+ | 2022-01-22 00:00 | | 98.7 | F | | | temperature_standar | | | | | d | | | + + + +---------+ | 2022-01-22 00:00 | weight_metric | 117 | kg | + + + +---------+ | 2022-01-22 00:00 | weight_standard | 257.94 | lb | + + + +---------+ | 2022-02-03 00:00 | BP_diastolic | 52 | mmHg | + + + +---------+ | 2022-02-03 00:00 | BP_systolic | 116 | mmHg | + + + +---------+ | 2022-02-03 00:00 | heart_rate | 69 | /min | + + + +---------+ | 2022-02-13 00:00 | BMI | 40.6 | kg/m2 | + + + +---------+ | 2022-02-13 00:00 | height_metric | 165.1 | cm | + + + +---------+ | 2022-02-13 00:00 | height_standard | 65 | in | + + + +---------+ | 2022-02-13 00:00 | weight_metric | 110.68 | kg | + + + +---------+ | 2022-02-13 00:00 | weight_standard | 244 | lb | + + + +---------+ | 2022-02-13 00:00 | weight_standard | 244.01 | lb | + + + +---------+ | 2022-02-17 00:00 | BP_diastolic | 57 | mmHg | + + + +---------+ | 2022-02-17 00:00 | BP_systolic | 126 | mmHg | + + + +---------+ | 2022-02-17 00:00 | heart_rate | 93 | /min | + + + +---------+ | 2022-02-17 00:00 | o2_saturation | 98 | % | + + + +---------+ | 2022-02-17 00:00 | respiration_rate | 16 | /min | + + + +---------+ | 2022-02-17 00:00 | temperature_metric | 37.06 | C | | | | | | + + + +---------+ | 2022-02-17 00:00 | | 98.7 | F | | | temperature_standar | | | | | d | | | + + + +---------+"
--- OUTSIDE RECORDS SUMMARY | ~2022-12-05 | XMS | Continuity of Care Document ---
Demographics + + + | Address | [address] | | | [place] [address] | + + + | Preferred Language | Unknown | + + + | Marital Status | | + + + | Yazidi Affiliation | Unknown | + + + | Race | White | + + + | Ethnic Group | Not or | + + + Author + + + | Author | [facility] | + + + | Organization | [facility] | + + + | Address | [address] | | | [place] [address] | + + + | Phone | | + + + Care Team Providers + + + + | Care Blending Supervisor Name | Role | Phone | + [...] + | 2012-11-14 00:00 | Pneumococcal | [facility] | | | Polysaccharide PPV23 | | + + + + | 2012-11-14 00:00 | Pneumococcal | [facility] | | | Polysaccharide PPV23 | | + + + + | 2022-01-18 00:00 | No vaccine administered | [facility] | + + + + | 2022-01-22 00:00 | No vaccine administered | [facility] | + + + + | 2022-02-17 00:00 | No vaccine administered | [facility] | + + + + Medications + + + + | date | description | facility | + + + + | 2022-02-17 00:00 | OXYCODONE HCL | [facility] | + + + + | 2022-02-17 00:00 | oxycodone hydrochloride 5 | [facility] | | | MG Oral Tablet | | + + + + | 2022-01-18 00:00 | NAPROXEN SODIUM | [facility] | + + + + | 2022-01-22 00:00 | NAPROXEN SODIUM | [facility] | + + + + | 2022-02-17 00:00 | NAPROXEN SODIUM | [facility] | + + + + | 2022-01-18 00:00 | naproxen sodium 220 MG | [facility] | | | Oral Capsule | | + + + + | 2022-01-22 00:00 | naproxen sodium 220 MG | [facility] | | | Oral Capsule | | + + + + | 2022-02-17 00:00 | naproxen sodium 220 MG | [facility] | | | Oral Capsule | | + + + + | 2022-01-17 00:00 | DOCUSATE SODIUM | [facility] | + + + + | 2022-01-17 00:00 | docusate sodium 100 MG | [facility] | | | Oral Capsule [Colace] | | + + + + | 2022-01-18 00:00 | CALCIUM CARBONATE/VITAMIN | [facility] | | | D3 | | + + + + | 2022-01-22 00:00 | CALCIUM CARBONATE/VITAMIN | [facility] | | | D3 | | + + + + | 2022-02-17 00:00 | CALCIUM CARBONATE/VITAMIN | [facility] | | | D3 | | + + + + | 2022-01-18 00:00 | calcium carbonate 1500 MG | [facility] | | | / cholecalciferol 800 UNT | | | | Oral Tab | | + + + + | 2022-01-22 00:00 | calcium carbonate 1500 MG | [facility] | | | / cholecalciferol 800 UNT | | | | Oral Tab | | + + + + | 2022-02-17 00:00 | calcium carbonate 1500 MG | [facility] | | | / cholecalciferol 800 UNT | | | | Oral Tab | | + + + + | 2022-01-18 00:00 | SIMVASTATIN | [facility] | + + + + | 2022-01-22 00:00 | SIMVASTATIN | [facility] | + + + + | 2022-02-17 00:00 | SIMVASTATIN | [facility] | + + + + | 2022-01-18 00:00 | simvastatin 40 MG Oral | [facility] | | | Tablet [Zocor] | | + + + + | 2022-01-22 00:00 | simvastatin 40 MG Oral | [facility] | | | Tablet [Zocor] | | + + + + | 2022-02-17 00:00 | simvastatin 40 MG Oral | [facility] | | | Tablet [Zocor] | | + + + + | 2022-02-17 00:00 | DOXYCYCLINE HYCLATE | [facility] | + + + + | 2022-02-17 00:00 | doxycycline hyclate 50 MG | [facility] | | | Oral Capsule | | + + + + | 2022-02-17 00:00 | DOXYCYCLINE MONOHYDRATE | [facility] | + + + + | 2022-02-17 00:00 | doxycycline monohydrate 50 | [facility] | | | MG Oral Tablet | | + + + + | 2022-01-18 00:00 | INDAPAMIDE | [facility] | + + + + | 2022-01-22 00:00 | INDAPAMIDE | [facility] | + + + + | 2022-02-17 00:00 | INDAPAMIDE | [facility] | + + + + | 2022-01-18 00:00 | indapamide 1.25 MG Oral | [facility] | | | Tablet | | + + + + | 2022-01-22 00:00 | indapamide 1.25 MG Oral | [facility] | | | Tablet | | + + + + | 2022-02-17 00:00 | indapamide 1.25 MG Oral | [facility] | | | Tablet | | + + + + | 2022-02-17 00:00 | ACETAMINOPHEN | [facility] | + + + + | 2022-02-17 00:00 | acetaminophen 500 MG Oral | [facility] | | | Tablet | | + + + + | 2022-01-18 00:00 | 3 ML insulin aspart, human | [facility] | | | 100 UNT/ML Pen Injector | | | | [Fiasp] | | + + + + | 2022-01-22 00:00 | 3 ML insulin aspart, human | [facility] | | | 100 UNT/ML Pen Injector | | | | [Fiasp] | | + + + + | 2022-02-17 00:00 | 3 ML insulin aspart, human | [facility] | | | 100 UNT/ML Pen Injector | | | | [Fiasp] | | + + + + | 2022-01-18 00:00 | Insulin Aspart | [facility] | | | (Niacinamide) | | + + + + | 2022-01-22 00:00 | Insulin Aspart | [facility] | | | (Niacinamide) | | + + + + | 2022-02-17 00:00 | Insulin Aspart | [facility] | | | (Niacinamide) | | + + + + | 2022-01-18 00:00 | ASCORBIC ACID | [facility] | + + + + | 2022-01-22 00:00 | ASCORBIC ACID | [facility] | + + + + | 2022-02-17 00:00 | ASCORBIC ACID | [facility] | + + + + | 2022-01-18 00:00 | ascorbic acid 1000 MG Oral | [facility] | | | Tablet | | + + + + | 2022-01-22 00:00 | ascorbic acid 1000 MG Oral | [facility] | | | Tablet | | + + + + | 2022-02-17 00:00 | ascorbic acid 1000 MG Oral | [facility] | | | Tablet | | + + + + | 2022-01-18 00:00 | FUROSEMIDE | [facility] | + + + + | 2022-01-22 00:00 | FUROSEMIDE | [facility] | + + + + | 2022-02-17 00:00 | FUROSEMIDE | [facility] | + + + + | 2022-01-18 00:00 | furosemide 20 MG Oral | [facility] | | | Tablet | | + + + + | 2022-01-22 00:00 | furosemide 20 MG Oral | [facility] | | | Tablet | | + + + + | 2022-02-17 00:00 | furosemide 20 MG Oral | [facility] | | | Tablet | | + + + + | 2022-01-18 00:00 | HYDROCHLOROTHIAZIDE | [facility] | + + + + | 2022-01-22 00:00 | HYDROCHLOROTHIAZIDE | [facility] | + + + + | 2022-02-17 00:00 | HYDROCHLOROTHIAZIDE | [facility] | + + + + | 2022-01-18 00:00 | hydrochlorothiazide 25 MG | [facility] | | | Oral Tablet | | + + + + | 2022-01-22 00:00 | hydrochlorothiazide 25 MG | [facility] | | | Oral Tablet | | + + + + | 2022-02-17 00:00 | hydrochlorothiazide 25 MG | [facility] | | | Oral Tablet | | + + + + | 2022-01-18 00:00 | POTASSIUM CHLORIDE | [facility] | + + + + | 2022-01-22 00:00 | POTASSIUM CHLORIDE | [facility] | + + + + | 2022-02-17 00:00 | POTASSIUM CHLORIDE | [facility] | + + + + | 2022-01-18 00:00 | potassium chloride 8 MEQ | [facility] | | | Extended Release Oral | | | | Capsule | | + + + + | 2022-01-22 00:00 | potassium chloride 8 MEQ | [facility] | | | Extended Release Oral | | | | Capsule | | + + + + | 2022-02-17 00:00 | potassium chloride 8 MEQ | [facility] | | | Extended Release Oral | | | | Capsule | | + + + + | 2022-01-18 00:00 | DULOXETINE HCL | [facility] | + + + + | 2022-01-22 00:00 | DULOXETINE HCL | [facility] | + + + + | 2022-02-17 00:00 | DULOXETINE HCL | [facility] | + + + + | 2022-01-18 00:00 | duloxetine 30 MG Delayed | [facility] | | | Release Oral Capsule | | + + + + | 2022-01-22 00:00 | duloxetine 30 MG Delayed | [facility] | | | Release Oral Capsule | | + + + + | 2022-02-17 00:00 | duloxetine 30 MG Delayed | [facility] | | | Release Oral Capsule | | + + + + | 2022-01-18 00:00 | ATORVASTATIN CALCIUM | [facility] | + + + + | 2022-01-22 00:00 | ATORVASTATIN CALCIUM | [facility] | + + + + | 2022-02-17 00:00 | ATORVASTATIN CALCIUM | [facility] | + + + + | 2022-01-18 00:00 | atorvastatin 40 MG Oral | [facility] | | | Tablet | | + + + + | 2022-01-22 00:00 | atorvastatin 40 MG Oral | [facility] | | | Tablet | | + + + + | 2022-02-17 00:00 | atorvastatin 40 MG Oral | [facility] | | | Tablet | | + + + + | 2022-01-18 00:00 | FERROUS SULFATE | [facility] | + + + + | 2022-01-22 00:00 | FERROUS SULFATE | [facility] | + + + + | 2022-02-17 00:00 | FERROUS SULFATE | [facility] | + + + + | 2022-01-18 00:00 | ferrous sulfate 325 MG | [facility] | | | Oral Tablet [Feosol] | | + + + + | 2022-01-22 00:00 | ferrous sulfate 325 MG | [facility] | | | Oral Tablet [Feosol] | | + + + + | 2022-02-17 00:00 | ferrous sulfate 325 MG | [facility] | | | Oral Tablet [Feosol] | | + + + + | 2022-01-18 00:00 | Varenicline Tartrate | [facility] | + + + + | 2022-01-22 00:00 | Varenicline Tartrate | [facility] | + + + + | 2022-02-17 00:00 | Varenicline Tartrate | [facility] | + + + + | 2022-01-18 00:00 | varenicline 1 MG Oral | [facility] | | | Tablet | | + + + + | 2022-01-22 00:00 | varenicline 1 MG Oral | [facility] | | | Tablet | | + + + + | 2022-02-17 00:00 | varenicline 1 MG Oral | [facility] | | | Tablet | | + + + + | 2022-02-17 00:00 | TRAMADOL HCL | [facility] | + + + + | 2022-02-17 00:00 | tramadol hydrochloride 50 | [facility] | | | MG Oral Tablet | | + + + + | 2022-01-18 00:00 | 3 ML insulin glargine 100 | [facility] | | | UNT/ML Pen Injector | | | | [Lantus] | | + + + + | 2022-01-22 00:00 | 3 ML insulin glargine 100 | [facility] | | | UNT/ML Pen Injector | | | | [Lantus] | | + + + + | 2022-02-17 00:00 | 3 ML insulin glargine 100 | [facility] | | | UNT/ML Pen Injector | | | | [Lantus] | | + + + + | 2022-01-18 00:00 | INSULIN | [facility] | | | GLARZORANE,HUM.REC.ANLOG | | + + + + | 2022-01-22 00:00 | INSULIN | [facility] | | | GLARGINE,HUM.REC.ANLOG | | + + + + | 2022-02-17 00:00 | INSULIN | [facility] | | | GLARGINE,HUM.REC.ANLOG | | + + + + | 2022-02-17 00:00 | 0.8 ML enoxaparin sodium | [facility] | | | 150 MG/ML Prefilled Syringe | | | | | | + + + + | 2022-02-17 00:00 | ENOXAPARIN SODIUM | [facility] | + + + + | 2022-01-18 00:00 | WARFARIN SODIUM | [facility] | + + + + | 2022-01-22 00:00 | WARFARIN SODIUM | [facility] | + + + + | 2022-02-17 00:00 | WARFARIN SODIUM | [facility] | + + + + | 2022-01-18 00:00 | warfarin sodium 10 MG Oral | [facility] | | | Tablet | | + + + + | 2022-01-22 00:00 | warfarin sodium 10 MG Oral | [facility] | | | Tablet | | + + + + | 2022-02-17 00:00 | warfarin sodium 10 MG Oral | [facility] | | | Tablet | | + + + + | 2022-01-18 00:00 | WARFARIN SODIUM | [facility] | + + + + | 2022-01-22 00:00 | WARFARIN SODIUM | [facility] | + + + + | 2022-02-17 00:00 | WARFARIN SODIUM | [facility] | + + + + | 2022-01-18 00:00 | warfarin sodium 5 MG Oral | [facility] | | | Tablet | | + + + + | 2022-01-22 00:00 | warfarin sodium 5 MG Oral | [facility] | | | Tablet | | + + + + | 2022-02-17 00:00 | warfarin sodium 5 MG Oral | [facility] | | | Tablet | | + + + + | 2022-01-18 00:00 | ENALAPRIL MALEATE | [facility] | + + + + | 2022-01-22 00:00 | ENALAPRIL MALEATE | [facility] | + + + + | 2022-02-17 00:00 | ENALAPRIL MALEATE | [facility] | + + + + | 2022-01-18 00:00 | enalapril maleate 2.5 MG | [facility] | | | Oral Tablet [Vasotec] | | + + + + | 2022-01-22 00:00 | enalapril maleate 2.5 MG | [facility] | | | Oral Tablet [Vasotec] | | + + + + | 2022-02-17 00:00 | enalapril maleate 2.5 MG | [facility] | | | Oral Tablet [Vasotec] | | + + + + | 2022-01-18 00:00 | ENALAPRIL MALEATE | [facility] | + + + + | 2022-01-22 00:00 | ENALAPRIL MALEATE | [facility] | + + + + | 2022-02-17 00:00 | ENALAPRIL MALEATE | [facility] | + + + + | 2022-01-18 00:00 | enalapril maleate 10 MG | [facility] | | | Oral Tablet | | + + + + | 2022-01-22 00:00 | enalapril maleate 10 MG | [facility] | | | Oral Tablet | | + + + + | 2022-02-17 00:00 | enalapril maleate 10 MG | [facility] | | | Oral Tablet | | + + + + | 2022-01-18 00:00 | ALBUTEROL SULFATE | [facility] | + + + + | 2022-01-18 00:00 | [id number] 200 ACTUAT | [facility] | | | albuterol 0.09 MG/ACTUAT | | | | Metered Dose I | | + + + + | 2022-01-18 00:00 | METOPROLOL TARTRATE | [facility] | + + + + | 2022-01-22 00:00 | METOPROLOL TARTRATE | [facility] | + + + + | 2022-02-17 00:00 | METOPROLOL TARTRATE | [facility] | + + + + | 2022-01-18 00:00 | metoprolol tartrate 50 MG | [facility] | | | Oral Tablet | | + + + + | 2022-01-22 00:00 | metoprolol tartrate 50 MG | [facility] | | | Oral Tablet | | + + + + | 2022-02-17 00:00 | metoprolol tartrate 50 MG | [facility] | | | Oral Tablet | | + + + + | 2022-01-17 00:00 | HYDROMORPHONE HCL | [facility] | + + + + | 2022-01-17 00:00 | hydromorphone | [facility] | | | hydrochloride 2 MG Oral | | | | Tablet [Dilaudid] | | + + + + | 2022-01-18 00:00 | LOSARTAN POTASSIUM | [facility] | + + + + | 2022-01-22 00:00 | LOSARTAN POTASSIUM | [facility] | + + + + | 2022-02-17 00:00 | LOSARTAN POTASSIUM | [facility] | + + + + | 2022-01-18 00:00 | losartan potassium 25 MG | [facility] | | | Oral Tablet | | + + + + | 2022-01-22 00:00 | losartan potassium 25 MG | [facility] | | | Oral Tablet | | + + + + | 2022-02-17 00:00 | losartan potassium 25 MG | [facility] | | | Oral Tablet | | + + + + Problems + + + + | date | description | facility | + + + + | 2015-12-15 00:00 | Confusion | [facility] | + + + + | 2015-12-15 00:00 | Confusion | [facility] | + + + + | 2019-11-28 16:25:07 | Rheumatic mitral stenosis | [facility] | | | [facility] | + + + + | 2019-11-28 16:25:07 | Nonrheumatic aortic | [facility] | | | (valve) stenosis | [facility] | + + + + | 2022-01-17 00:00 | Postoperative pain of left | [facility] | | | knee | | + + + + | 2022-01-17 00:00 | Postoperative pain of left | [facility] | | | knee | | + + + + | 2022-01-22 00:00 | Anemia | [facility] | + + + + | 2022-01-22 00:00 | Anemia | [facility] | + + + + | 2022-01-22 00:00 | Weakness | [facility] | + + + + | 2022-01-22 00:00 | Weakness | [facility] | + + + + | 2022-02-13 00:00 | Postoperative infection of | [facility] | | | knee | | + + + + | 2022-05-26 09:34 | ENCOUNTER FOR THERAPEUTIC | [facility] | | | DRUG LEVEL MONITORING | | + + + + | 2022-05-26 09:34 | 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 | [facility] | | | ANTICOAGULANTS | | + + + + | 2022-05-26 09:34 | PRESENCE OF PROSTHETIC | [facility] | | | HEART VALVE | | + + + + | 2022-06-02 09:25 | ENCOUNTER FOR THERAPEUTIC | [facility] | | | DRUG LEVEL MONITORING | | + + + + | 2022-06-02 09:25 | [facility]DC (CURRENT) USE OF | [facility] | | [...] + + + | 2022-06-09 08:39 | [facility] (CURRENT) USE OF | [facility] | | [...] + + + | 2022-11-03 10:15 | [facility] (CURRENT) USE OF | [facility] | | | ANTICOAGULANTS | | + + + + | 2022-11-03 10:15 | PRESENCE OF PROSTHETIC | [facility] | | | HEART VALVE | | + + + + | 2022-11-10 09:23 | ENCOUNTER FOR THERAPEUTIC | [facility] | | | DRUG LEVEL MONITORING | | + + + + | 2022-11-10 09:23 | 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
[~2022-12-05 20:19] MED LIST changes: +ACETAMINOPHEN500 MG PO; +AMOX TR-K CLV1 EACH PO; +AUGMENTIN 500-1 EACH PO; -CALTRATE 600 +1 EAC1 PO; +CALTRATE 600 P1 EACH PO; +DIFLUCAN200 MG PO; +DOXYCYCLINE HYC50 MG PO; +DOXYCYCLINE MON50 M1 PO; +DULOXETINE HCL20 MG PO; +ENOXAPARIN120 MG/0.8 SUB-Q; +FLORASTOR250 MG PO; +INDAPAMIDE2.5 MG PO; +INSULIN LI100 UNIT/2 SUB-Q; +LOSARTAN POTASS50 MG PO; +OXYCODONE HCL5 MG PO; +PIPERACIL-TA3.375 GM IV; +SANTYL30 GM TOP; +TORSEMIDE10 MG PO; +TRAMADOL HCL50 MG PO; +WARFARIN SODIU2.5 MG PO
--- OUTSIDE RECORDS SUMMARY | 2022-12-05 20:20 | XMS ---
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 Efraín has no Care Guidelines for this patient. Rhonda VISIT COUNT (12 MO.) 4 [facility] NOTE: Visits indicate total known visits. ED/C VISIT TRACKING (12 MO.) 12/05/2022 20:19 [facility] H[facility] [place] TYPE: Emergency COMPLAINT: - POSS STROKE [facility] DIAGNOSES: - Abnormal coagulation profile - Coagulation Disorder 09/08/2022 14:[facility] DIAGNOSES: - Abnormal coagulation profile - Abnormal Lab 02/13/2022 05:07 [facility] Kulkarni TYPE: Emergency COMPLAINT: - POST OP PROBLEM DIAGNOSES: - Allergy status to other drugs, medicaments and biological substances - Contact with and (suspected) exposure to COVID-19 - Essential (primary) hypertension - Infection and inflammatory reaction due to internal left knee prosthesis, initial encounter - exterminator termite (current) use of anticoagulants - assisted (current) use of insulin - Nicotine dependence, unspecified, uncomplicated - Other termination clerk (current) drug therapy - Personal history of other venous thrombosis and embolism - Personal history of pulmonary embolism - Presence of left artificial knee joint - Pure hypercholesterolemia, unspecified - Type 2 diabetes mellitus without complications 01/22/2022 12:04 [facility] [place] TYPE: Emergency COMPLAINT: - DIZZINESS, SOB, LOW B/P DIAGNOSES: - Allergy status to other drugs, medicaments and biological substances - Anemia, unspecified - Essential (primary) hypertension - assisted (current) use of anticoagulants - assisted (current) use of insulin - Nicotine dependence, unspecified, uncomplicated - Other termination clerk (current) drug therapy - Pure hypercholesterolemia, unspecified - Shortness of breath - Type 2 diabetes mellitus without complications - Weakness 01/17/2022 20:49 [facility] [place] TYPE: Emergency COMPLAINT: - POST OP SWELLING DIAGNOSES: - Allergy status to other drugs, medicaments and biological substances - Essential (primary) hypertension - exterminator termite (current) use of anticoagulants - assisted (current) use of insulin - Nicotine dependence, unspecified, uncomplicated - Other acute postprocedural pain - Other termination clerk (current) drug therapy - Pain in left knee - Personal history of other venous thrombosis and embolism - Personal history of pulmonary embolism - Presence of left artificial knee joint - Pure hypercholesterolemia, unspecified - Type 2 diabetes mellitus without complications INPATIENT VISIT TRACKING (12 MO.) 07/13/2022 11:15 [facility] [place] TYPE: Surgical Services DIAGNOSES: - Broken internal joint prosthesis, other site, initial encounter - Chronic atrial fibrillation, unspecified - Infection and inflammatory reaction due to internal left knee prosthesis, initial encounter - Infection and inflammatory reaction due to other internal joint prosthesis, subsequent encounter - exterminator termite (current) use of antibiotics - exterminator termite (current) use of anticoagulants - Other bacterial infections of unspecified site - Other mechanical complication of internal left knee prosthesis, initial encounter - Other mechanical complication of internal left knee prosthesis, subsequent encounter - Personal history of other venous thrombosis and embolism - Presence of unspecified artificial knee joint 02/17/2022 13:47 [facility] DIAGNOSES: - Aftercare following joint replacement surgery - Chronic kidney disease, stage 3b - Dependence on other enabling machines and devices - Disruption of wound, unspecified, initial encounter - Enterococcus as the cause of diseases classified elsewhere - Essential (primary) hypertension - Infection and inflammatory reaction due to other internal orthopedic prosthetic devices, implants and grafts, initial encounter - Infection and inflammatory reaction due to other internal orthopedic prosthetic devices, implants and grafts, subsequent encounter - exterminator termite (current) use of anticoagulants - assisted (current) use of insulin - Obstructive sleep apnea (adult) (pediatric) - Other bacterial infections of unspecified site - Presence of left artificial knee joint - Presence of prosthetic heart valve - Streptococcal infection, unspecified site - Type 2 diabetes mellitus with diabetic nephropathy - Unilateral primary osteoarthritis, left knee [id number]
[2022-12-05 20:36] LABS: BASOPHILS 0.2 % (0-2); HEMOGLOBIN 11.6 g/dL (12.0-18.0); LYMPHOCYTES 23.1 % (24-44); MCH 28.5 (27-36); MCHC 33.2 g/dl (30-36); MCV 85.8 fl (81-99); MONOCYTES 7.8 % (0-12); NEUTROPHILS 65.9 % (39-80); PLATELET COUNT 410 K/uL (140-440); RBC 4.08 M/ul (4.3-5.7); RDW 16.6 (10.5-15.0)
[2022-12-05] MEDS ORDERED: INSULIN AS100 UNIT/3 SUB-Q (20:42)
[2022-12-05 20:44] LABS: PARTIAL THROMBOPLASTIN TIME 38.3 Sec (22.9-41.3)
[2022-12-05] MEDS ORDERED: FLUCONAZOLE200 MG PO (20:45)
[2022-12-05] MEDS ORDERED: DOXYCYCLINE HY100 M3 PO (20:46)
[2022-12-05] MEDS ORDERED: LOSARTAN POTASS25 MG PO (20:46)
[2022-12-05 20:55] LABS: INR 1.46 (0.80-1.30)
[2022-12-05 20:58] LABS: ALBUMIN 2.9 g/dL (3.4-5.0); ALBUMIN/GLOBULIN RATIO 0.67 (1.1-2.4); ALCOHOL, MEDICAL <3 ng/dL (<3); ALKALINE PHOSPHATASE 143 U/L (46-116); ALT (SGPT) 34 U/L (14-59); ANION GAP 16.1 (7-21); AST (SGOT) 21 U/L (15-37); BILIRUBIN, TOTAL 0.2 ng/dL (0.2-1.0); CALCIUM 9.2 mg/dL (8.5-10.1); CARBON DIOXIDE 24 mmol/L (21-32); CHLORIDE 99 mmol/L (98-107); CREATININE, SERUM 2.14 mg/dL (0.55-1.02); GLOMERULAR FILTRATION RATE,EST 25 mL/min (>60); MAGNESIUM 1.8 mg/dL (1.8-2.4); POTASSIUM 4.1 mmol/L (3.5-5.1); PROTEIN, TOTAL 7.2 g/dL (6.4-8.2); UREA NITROGEN 61 mg/dL (7-18)
[2022-12-05 21:15] LABS: BILIRUBIN, URINE NEGATIVE (negative); BLOOD/HGB, URINE TRACE-I (Negative); KETONE, URINE NEGATIVE (Negative); LEUK ESTERASE, URINE TRACE (negative); NITRITE, URINE NEGATIVE (negative); PH, URINE 5.5 (5-7)
[2022-12-05 21:16] LABS: AMPHETAMINES, UR NEGATIVE (NEGATIVE); BARBITURATES, UR NEGATIVE (NEGATIVE); BENZODIAZEPINES, UR NEGATIVE (NEGATIVE); BUPRENORPHINE,UR NEGATIVE (NEGATIVE); COCAINE, UR NEGATIVE (NEGATIVE); EPITHELIAL CELLS, URINE SQUAMOUS 1+ /lpf (0-1+); MARIJUANA (THC), UR NEGATIVE (NEGATIVE); MDMA, UR NEGATIVE (NEGATIVE); METHADONE, UR NEGATIVE (NEGATIVE); METHAMPHETAMINE, UR NEGATIVE (NEGATIVE); OPIATES, UR NEGATIVE (NEGATIVE); OXYCODONE, UR NEGATIVE (NEGATIVE); PHENCYCLIDINE, UR NEGATIVE (NEGATIVE); REFLEX CULTURE, URINE No (No); TRICYCLIC ANTIDEPRESSANT, UR NEGATIVE (NEGATIVE)
[2022-12-06 02:12] VITALS: BP 125/56
--- NOTE | 2022-12-06 22:58 | EKG ---
[facility] [address] [place] [address] Signed Normal sinus rhythm Normal ECG When compared with ECG of 22-JAN-2022 13:03, No significant change was found Confirmed by Genna Chicas MD () on 12/06/2022 10:57:59 PM Electronically Signed By: GENNA CHICAS MD 12/06/22 2258 PATIENT NAME: LENORE TOTH BUCK Electrocardiogram DATE OF : 53 PHYSICIAN: GENNA CHICAS MD REPORT #: [id number] REPORT IS CONFIDENTIAL AND NOT TO BE RELEASED WITHOUT AUTHORIZATION
== END 2022-12-06 02:12 | disposition short-term general hospital (02) ==
LOC: ED 20:19
PROVIDERS: Internal Medicine
DX: I63.9 Cerebral infarction, unspecified (principal); R47.01 Aphasia; I10 Essential (primary) hypertension; E11.9 Type 2 diabetes mellitus without complications; F17.200 Nicotine dependence, unspecified, uncomplicated; Z79.01 Long term (current) use of anticoagulants; Z79.4 Long term (current) use of insulin; Z79.899 Other long term (current) drug therapy; Z95.2 Presence of prosthetic heart valve; Z88.8 Allergy status to other drugs, medicaments and biological substances; Z88.6 Allergy status to analgesic agent; Z88.5 Allergy status to narcotic agent
CPT/HCPCS: 36415; 70450; 71045; 80053; 81001; 83735; 83880; 84484; 85025; 85610; 85730; 93005; 93010; 96365; 96366; 99285-25; G0480; J1644; J7121

== ENCOUNTER 2023-03-03 00:19 | Emergency (ER) | payer MEDICARE ==
[~2023-03-03] VITALS: Ht 165.1 cm; Wt 92.7 kg
--- OUTSIDE RECORDS SUMMARY | ~2023-03-03 | XMS | Continuity of Care Document ---
Demographics + + + | Address | [address] | | | [place] [address] | + + + | Preferred Language | Unknown | + + + | Marital Status | Unknown | + + + | Gnosticism Affiliation | Unknown | + + + | Race | White | + + + | Ethnic Group | Not or | + + + Author + + + | Author | [facility] | + + + | Organization | [facility] | + + + | Address | [address] | | | [place] [address] | + + + | Phone | | + + + Care Team Providers + + + + | Care Tennis Ball Coverer Hand Name | Role | Phone | + + + + Unavailable | Unavailable | + + + + Allergies No information. Encounters No information. Functional Status No information. Immunizations No information. Medications No information. Problems No information. Procedures No information. Results/Labs +--------+--------+ +---------+--------+---------+ | test | date | facility | value | unit | notes | +--------+--------+ +---------+--------+---------+ + + | Result panel 1 | + + + + + +--------+ + + | BILIRUBIN, | 2022-12-06 | [facility] | 0.21 | mg/dl | (missing) | | TOTAL | 05:19 | [facility] | | | | + + + +--------+ + + | | 2022-12-06 | [facility] | 0.9 | (missing) | (missing) | | ALBUMIN/GLOB | 05:19 | [facility] | | | | + + + +--------+ + + | CREATININE | 2022-12-06 | [facility] | 1.77 | mg/dl | (missing) | | | 05:19 | [facility] | | | | + + + +--------+ + + | MAGNESIUM | 2022-12-06 | [facility] | 1.8 | mg/dl | (missing) | | | 05:19 | [facility] | | | | + + + +--------+ + + | CHLORIDE | 2022-12-06 | [facility] | 108 | mmol/l | (missing) | | | 05:19 | [facility] | | | | + + + +--------+ + + | ANION GAP | 2022-12-06 | [facility] | 11 | (missing) | (missing) | | | 05:19 | [facility] | | | | + + + +--------+ + + | ALKALINE | 2022-12-06 | [facility] | 138 | iu/l | (missing) | | PHOSPHATASE | 05:19 | [facility] | | | | + + + +--------+ + + | SODIUM | 2022-12-06 | [facility] | 141 | mmol/l | (missing) | | | 05:19 | [facility] | | | | + + + +--------+ + + | GLUCOSE | 2022-12-06 | [facility] | 157 | mg/dl | | | | 05:19 | [facility] | | | | + + + +--------+ + + Social History +--------+ + + | date | description | facility | +--------+ + + Vital Signs No information."
[~2023-03-03 00:19] MED LIST changes: +ALLOPURINOL100 MG PO; +DOXYCYCLINE HY100 M3 PO; +FEROSUL325 MG PO; +FLUCONAZOLE200 MG PO; +INSULIN AS100 UNIT/3 SUB-Q
--- OUTSIDE RECORDS SUMMARY | 2023-03-03 00:22 | XMS ---
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 Efraín has no Care Guidelines for this patient. Rhonda VISIT COUNT (12 MO.) 3 [facility] 2 [facility] 1 [facility] TOTAL 6 NOTE: Visits indicate total known visits. 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 DIAGNOSES: - Abnormal coagulation profile - Coagulation Disorder 09/08/2022 14:00 [facility] DIAGNOSES: - Abnormal coagulation profile - Abnormal Lab INPATIENT VISIT TRACKING (12 MO.) 12/06/2022 04:33 [place] [facility] [place] TYPE: Neuro Surgery DIAGNOSES: - Cerebral infarction due to unspecified occlusion or stenosis of left middle cerebral artery - Cerebral infarction, unspecified 07/13/2022 11:15 [facility] [place] TYPE: Surgical Services DIAGNOSES: - Broken internal joint prosthesis, other site, initial encounter - Chronic atrial fibrillation, unspecified - Infection and inflammatory reaction due to internal left knee prosthesis, initial encounter - Infection and inflammatory reaction due to other internal joint prosthesis, subsequent encounter - half-way (current) use of antibiotics - 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
[2023-03-03 00:55] LABS: BASOPHILS 0.7 % (0-2); EOSINOPHILS 1.7 % (0-6); HEMATOCRIT 31.3 % (35.0-50.0); HEMOGLOBIN 10.4 g/dL (12.0-18.0); LYMPHOCYTES 26.1 % (24-44); MCH 30.6 (27-36); MCHC 33.3 g/dl (30-36); MCV 91.9 fl (81-99); MONOCYTES 9.7 % (0-12); NEUTROPHILS 61.8 % (39-80); PLATELET COUNT 471 K/uL (140-440); RBC 3.41 M/ul (4.3-5.7)
[2023-03-03 01:05] LABS: INR 3.45 (0.80-1.30); PROTIME 33.7 Sec (11.2-14.2)
[2023-03-03 01:08] LABS: PARTIAL THROMBOPLASTIN TIME 78.6 Sec (22.9-41.3)
[2023-03-03 01:10] LABS: ALBUMIN 2.7 g/dL (3.4-5.0); ALBUMIN/GLOBULIN RATIO 0.71 (1.1-2.4); ANION GAP 13.8 (7-21); BILIRUBIN, TOTAL 0.2 ng/dL (0.2-1.0); BUN/CREATININE RATIO 29.78 (6.0-28.6); CALCIUM 9.8 mg/dL (8.5-10.1); CREATININE, SERUM 1.88 mg/dL (0.55-1.02); POTASSIUM 3.8 mmol/L (3.5-5.1); PROTEIN, TOTAL 6.5 g/dL (6.4-8.2)
[2023-03-03 02:55] VITALS: BP 118/45
--- NOTE | 2023-03-03 13:36 | EKG ---
[facility] [address] [place] [address] Signed Normal sinus rhythm Normal ECG When compared with ECG of 22-FEB-2023 22:55, No significant change was found Confirmed by PRINCESS THOMPSON MD ([id number]) on 03/03/2023 1:36:00 PM Electronically Signed By: PRINCESS THOMPSON 03/03/23 1336 PATIENT NAME: LENORE TOTH BUCK Electrocardiogram DATE OF : 53 PHYSICIAN: PRINCESS THOMPSON REPORT #: [id number] REPORT IS CONFIDENTIAL AND NOT TO BE RELEASED WITHOUT AUTHORIZATION
== END 2023-03-03 02:35 | disposition short-term general hospital (02) ==
LOC: ED 00:19
PROVIDERS: Emergency Medicine
DX: I63.511 Cerebral infarction due to unspecified occlusion or stenosis of right middle cerebral artery (principal); G81.94 Hemiplegia, unspecified affecting left nondominant side; I10 Essential (primary) hypertension; E11.9 Type 2 diabetes mellitus without complications; F17.200 Nicotine dependence, unspecified, uncomplicated; Z88.8 Allergy status to other drugs, medicaments and biological substances; Z79.899 Other long term (current) drug therapy; Z79.4 Long term (current) use of insulin; Z79.01 Long term (current) use of anticoagulants; Z95.2 Presence of prosthetic heart valve
CPT/HCPCS: 36415; 70450; 70496; 70498; 71045; 80053; 85025; 85610; 85730; 93005; 93010; Q9967